=== PATIENT | male | born 1960 | race Caucasian/White ===

== ENCOUNTER 2017-01-10 11:45 | Inpatient (IN) | payer MEDICAID ==
[~2017-01-10] VITALS: Ht 177.8 cm; Wt 65.5 kg
[~2017-01-10 11:45] MED LIST: LORA1TAB PO; METO-302 PO
--- NOTE | 2017-01-10 11:50 | NUR ---
una from home for possible gi bleeding. Patient is awake, however appears confused. In no acute distress, respiration even and unlabored. No chest pain, no sob noted. Abdomen non tendered and non- distended. Patient noted with black stool. No nv. skin is warm to touch and non diaphoretic, Afebrile. Pending md breen
[2017-01-10] MEDS ORDERED: ONDANSETRON HCL/PF 4 MG/2 ML VIAL IVP ONE (12:00)
[2017-01-10] MEDS ORDERED: PANTOPRAZOLE 40 MG VIAL IV ONE (12:00)
[2017-01-10] MEDS ORDERED: PANTOPRAZOLE 80 MG in IV NS 0.9% 100 ML IV ONE (12:00)
[2017-01-10] MEDS ORDERED: IV NS 0.9% 1,000 ML BAG IV ONE (12:00)
[2017-01-10] MEDS ORDERED: PANTOPRAZOLE 40 MG VIAL ONE ×2 (12:02→12:14)
[2017-01-10] MEDS ORDERED: ONDANSETRON HCL/PF 4 MG/2 ML VIAL ONE (12:02)
[2017-01-10] MEDS ORDERED: IV NS 0.9% 1,000 ML ONE (12:03)
[2017-01-10] MEDS ORDERED: IV SET PRIMARY PUMP SET 1 EA INFUS.SET MC ONE ×4 (12:03→15:35)
--- NOTE | 2017-01-10 12:12 | NUR ---
iv accessed. Blood sample sent to lab
[2017-01-10 12:17] LABS: BASOPHILS # (AUTO) 0.2 /CMM (0.0-0.2); BASOPHILS % (AUTO) 1.2 % (0.0-2.0); EOSINOPHILS # (AUTO) 0.2 /CMM (0.0-0.7); EOSINOPHILS % (AUTO) 1.6 % (0.0-6.0); HEMATOCRIT 35 % (39-51); HEMOGLOBIN 11.6 g/dL (13.5-17.5); LYMPHOCYTES # (AUTO) 1.8 /CMM (0.8-4.8); LYMPHOCYTES % (AUTO) 12.2 % (20.0-44.0); MEAN CORPUSCULAR HEMOGLOBIN 31 PG (26.0-33.0); MEAN CORPUSCULAR HGB CONC 33 g/dl (31.0-36.0); MEAN CORPUSCULAR VOLUME 94 fL (80-96); MONOCYTES # (AUTO) 0.7 /CMM (0.1-1.30); MONOCYTES % (AUTO) 4.6 % (2.0-12.0); NEUTROPHILS # (AUTO) 11.8 /CMM (1.8-8.9); NEUTROPHILS % (AUTO) 80.4 % (43.0-81.0); PLATELET COUNT (AUTO) 100 /CMM (150-450); RDW COEFFICIENT OF VARIATION 16.8 (11.5-15.0); RED BLOOD CELL COUNT(AUTO) 3.75 MIL/uL (4.5-6.0); WHITE BLOOD COUNT (AUTO) 14.6 K/uL (4.3-11.0)
--- NOTE | 2017-01-10 12:20 | NUR ---
due medications given as ordered
[2017-01-10] MEDS ORDERED: FOLI1TAB16 PO (12:26)
[2017-01-10] MEDS ORDERED: THIA100T13 PO (12:26)
[2017-01-10] MEDS ORDERED: PANT40TA4 PO (12:26)
[2017-01-10 12:40] LABS: BILIRUBIN,DIRECT 0.7 mg/dL (0.0-0.2); BILIRUBIN,TOTAL 2.5 mg/dL (0.2-1.0); CALCIUM, SERUM 8.7 mg/dL (8.5-10.1); CREATININE 1.2 mg/dL (0.6-1.3); TOTAL PROTEIN, SERUM 6.9 g/dL (6.4-8.2)
[2017-01-10 12:42] LABS: POTASSIUM 2.3 mmol/L (3.5-5.1); TROPONIN I 0.018 ng/mL (0.00-0.056)
[2017-01-10 12:43] LABS: INR 1.15 (0.87-1.13); PROTHROMBIN TIME 12.1 SECS (9.5-12.7)
--- NOTE | 2017-01-10 12:58 | NUR ---
Pharmacy called for protonix drip
[2017-01-10] MEDS ORDERED: PANTOPRAZOLE 80 MG in IV NS 0.9% 500 ML IV ONE (13:00)
[2017-01-10 13:01] LABS: SERUM AMMONIA 37 umol/L (11-32)
[2017-01-10] MEDS ORDERED: Magnesium 1GM/D5W 100ML PREMIX 100 ML IV SCH (13:30)
[2017-01-10] MEDS ORDERED: POTASSIUM CL. PREMIX PERIPHER. 50 ML IV SCH (13:30)
[2017-01-10] MEDS ORDERED: Thiamine 100 MG in IV D5W 50 ML IV SCH (13:30)
[2017-01-10] MEDS ORDERED: Magnesium 1GM/D5W 100ML PREMIX 200 ML IV ONE (13:32)
[2017-01-10] MEDS ORDERED: POTASSIUM CL. PREMIX PERIPHER. 200 ML ONE (13:32)
[2017-01-10 13:42] LABS: ALCOHOL, BLOOD 0 mg/dL (0-0)
[2017-01-10] MEDS ORDERED: MORPHINE SULFATE INJ 2 MG/ML DISP.SYRIN IV PRN (14:00)
[2017-01-10] MEDS ORDERED: ONDANSETRON HCL/PF 4 MG/2 ML VIAL IVP PRN (14:00)
--- NOTE | 2017-01-10 14:07 | NUR ---
Report given to nurse Barnard for harper. Potassium 3 bags and magnesium 1 bag endorsed. Verbalized understanding. Pt cont on protonix drip. vss.
--- NOTE | 2017-01-10 14:12 | NUR ---
PT TRANSPORTED TO [facility] FOR BELEN
[2017-01-10 14:20] VITALS: BP 133/84
--- NOTE | 2017-01-10 14:20 | NUR ---
RN NOTES 56 YEARS OLD MALE RECEIVED FORM ER , A/Ox3-4, RESPIRATION EVEN AND UNLABORED , ON RA , ALIYA ANY DISTRESS , ST ON TELE, R AC AND L WRIST IV SITE CDI, PT. ORIENTED TO ROOM AND SURROUNDING , ADMISSION SKIN PHOTO TAKEN , PT ON CLEAR LIQUID DIET AT THIS TIME, NO GI BLEEDING NOTED, SR UP x3. BED IN LOW AND LOCKED POSITION, CONTINUE TO MONITOR PT CLOSELY AND NOTIFY MD FOR ANY SIGNIFICANT CHANGES
[2017-01-10] MEDS: OCTREOTIDE 1,250 MCG in IV NS 0.9% 247.5 ML IV PRN (15:16)
[2017-01-10 16:00] VITALS: BP 133/84
[2017-01-10] MEDS ORDERED: SECONDARY IV SET 1 EA INFUS.SET MC ONE (16:34)
[2017-01-10] MEDS: Folic acid 1 MG in IV D5W 50 ML IV SCH (16:39)
[2017-01-10] MEDS: IV D5/ 0.9% NACL 1,000 ML IV PRN (16:39)
--- NOTE | 2017-01-10 18:00 | NUR ---
RN NOTES VSS STABLE , NO GI BLEEDING NOTED , TOLERATING CLEAR LIQUID DIET WELL, D5NS AT 100 AND PROTONIX AT 8CC/HR RUNNING VIA L WRIST IV SITE NO PROBLEM NOTED ON THE SITE, SANDOSTATIN AT 10CC/HR RUNNING VIA R AC IV SITE ,WITHOUT ANY COMPLICATION , MEDICATED PER MD ORDER , NO SIGNIFICANT CHANGES NOTED ON THIS SHIFT.
[2017-01-10 20:00] VITALS: BP 97/61
[2017-01-10] MEDS: LORAZEPAM INJ 2 MG/ML VIAL IV PRN (22:06)
[2017-01-10] MEDS: PANTOPRAZOLE 80 MG in IV NS 0.9% 500 ML IV PRN (22:30)
--- NOTE | 2017-01-10 23:40 | NUR ---
FREDY/BUILDING MAINTENANCE SUPERINTENDENT Pt stated he takes Ativan to sleep, inform RN. IVP of this was given 0.5mg ivp. call light within reach. will monitor pt.
[2017-01-11] VITALS (8 sets, daily range): BP systolic 91–109; BP diastolic 58–67
[2017-01-11] MEDS: IV D5/ 0.9% NACL 1,000 ML IV PRN ×2 (04:46→21:49)
--- NOTE | 2017-01-11 07:15 | NUR ---
RN FREDY INITIAL NOTES RECEIVED REPORT AND PT FROM PM NURSE, PT IN BED SITTING UPRIGHT AWAKE AND ALERT X3, NO SOB OR ACUTE DISTRESS NOTED, ON RA SAT ABOVE 97%, ON TELE MON WITH HR SR 97, LT AC RT AC IV SITES INTACT NO S.S OF INFILTRATION NOTED, ALL NEEDS MET, ALL SAFETY MEASURES INITIATED, SIDE RAILS X2, BED LOW AND LOCKED, CALL LIGHT WITHIN REACH, WILL CONTINUE TO MONITOR.
[2017-01-11 07:30] LABS: BASOPHILS % (AUTO) 0.5 % (0.0-2.0); EOSINOPHILS # (AUTO) 0.5 /CMM (0.0-0.7); EOSINOPHILS % (AUTO) 6.7 % (0.0-6.0); HEMATOCRIT 26 % (39-51); HEMOGLOBIN 8.5 g/dL (13.5-17.5); LYMPHOCYTES # (AUTO) 1.2 /CMM (0.8-4.8); LYMPHOCYTES % (AUTO) 15.2 % (20.0-44.0); MEAN CORPUSCULAR HEMOGLOBIN 32 PG (26.0-33.0); MEAN CORPUSCULAR HGB CONC 33 g/dl (31.0-36.0); MEAN CORPUSCULAR VOLUME 95 fL (80-96); MONOCYTES # (AUTO) 0.4 /CMM (0.1-1.30); MONOCYTES % (AUTO) 5.8 % (2.0-12.0); NEUTROPHILS # (AUTO) 5.5 /CMM (1.8-8.9); NEUTROPHILS % (AUTO) 71.8 % (43.0-81.0); PLATELET COUNT (AUTO) 69 /CMM (150-450); RDW COEFFICIENT OF VARIATION 18.3 (11.5-15.0); WHITE BLOOD COUNT (AUTO) 7.6 K/uL (4.3-11.0)
[2017-01-11 07:48] LABS: ALBUMIN 2.1 g/dL (3.4-5.0); BILIRUBIN,TOTAL 1.4 mg/dL (0.2-1.0); CALCIUM, SERUM 7.5 mg/dL (8.5-10.1); CREATININE 0.8 mg/dL (0.6-1.3); MAGNESIUM 2.1 mg/dL (1.8-2.4); PHOSPHORUS 1.2 mg/dL (2.5-4.9); TOTAL PROTEIN, SERUM 5.2 g/dL (6.4-8.2)
[2017-01-11 07:54] LABS: THYROID STIMULATING HORMONE 0.661 uIU/mL (0.358-3.74)
[2017-01-11] MEDS: METOPROLOL SUCCINATE 25 MG TAB.SR.24H PO SCH (08:20)
[2017-01-11 08:23] LABS: POTASSIUM 2.6 mmol/L (3.5-5.1)
[2017-01-11 09:55] LABS: EOSINOPHILS % (MANUAL) 5 % (0-4); LYMPHOCYTES % (MANUAL) 17 % (16-48); MONOCYTES % (MANUAL) 4 % (0-11.0); NEUTROPHILS % (MANUAL) 73 (42-76)
[2017-01-11 09:56] LABS: ANISOCYTOSIS 1+; BAND % (MANUAL) 1 % (0.0-5.0); BASOPHILS % (MANUAL) 0 % (0.0-2.0); PLATELET ESTIMATE DECREASED
[2017-01-11] MEDS ORDERED: POTASSIUM CHLORIDE 10 MEQ/50 ML PREMIXED IVPB FOR PERIPHERAL LINE IV ONE (10:00)
[2017-01-11] MEDS: POTASSIUM CHLORIDE 20 MEQ POWDER PACKET GT SCH ×4 (10:32→13:43)
[2017-01-11] MEDS: POTASSIUM CL. PREMIX PERIPHER. 50 ML IV SCH ×4 (10:33→13:43)
[2017-01-11] MEDS: Thiamine 100 MG in IV D5W 50 ML IV SCH (14:42)
[2017-01-11] MEDS: Folic acid 1 MG in IV D5W 50 ML IV SCH (14:43)
[2017-01-11 14:50] LABS: CALCIUM, SERUM 7.7 mg/dL (8.5-10.1); CREATININE 0.8 mg/dL (0.6-1.3); POTASSIUM 4.3 mmol/L (3.5-5.1)
[2017-01-11 14:51] LABS: BASOPHILS % (AUTO) 0.5 % (0.0-2.0); EOSINOPHILS # (AUTO) 0.3 /CMM (0.0-0.7); EOSINOPHILS % (AUTO) 4.9 % (0.0-6.0); HEMATOCRIT 28 % (39-51); HEMOGLOBIN 9.2 g/dL (13.5-17.5); LYMPHOCYTES % (AUTO) 19.8 % (20.0-44.0); MEAN CORPUSCULAR HEMOGLOBIN 32 PG (26.0-33.0); MEAN CORPUSCULAR HGB CONC 33 g/dl (31.0-36.0); MEAN CORPUSCULAR VOLUME 95 fL (80-96); MONOCYTES # (AUTO) 0.3 /CMM (0.1-1.30); MONOCYTES % (AUTO) 6.6 % (2.0-12.0); NEUTROPHILS # (AUTO) 3.5 /CMM (1.8-8.9); NEUTROPHILS % (AUTO) 68.2 % (43.0-81.0); PLATELET COUNT (AUTO) 74 /CMM (150-450); RDW COEFFICIENT OF VARIATION 18.8 (11.5-15.0); RED BLOOD CELL COUNT(AUTO) 2.91 MIL/uL (4.5-6.0); WHITE BLOOD COUNT (AUTO) 5.2 K/uL (4.3-11.0)
[2017-01-11] MEDS ORDERED: IV SET PRIMARY PUMP SET 1 EA INFUS.SET MC ONE (15:02)
[2017-01-11] MEDS ORDERED: SECONDARY IV SET 1 EA INFUS.SET MC ONE (15:13)
[2017-01-11 15:16] LABS: EOSINOPHILS % (MANUAL) 5 % (0-4); LYMPHOCYTES % (MANUAL) 24 % (16-48); MONOCYTES % (MANUAL) 5 % (0-11.0); NEUTROPHILS % (MANUAL) 66 (42-76)
[2017-01-11 15:17] LABS: PLATELET ESTIMATE DECREASED
[2017-01-11] MEDS ORDERED: Sodium Phosphate 15 MMOL in IV D5W 250 ML IV ONE (16:00)
--- NOTE | 2017-01-11 19:30 | NUR ---
RN INITIAL NOTES RECEIVED PT AWAKE ON BED, ON ROOM AIR WITH NO S/S OF RESP DISTRESS. PT IS A/O X1 ONLY, VERY CONFUSED, WITH DISORGANIZED THOUGHTS. CURRENTLY SINUS RHYTHM ON THE MONITOR, HR 80'S. CONTINENT, ABLE TO USE URINAL NEEDED. PT HAS RIGHT AC 20G AND RIGHT FOOT 22G WITH PROTONIX DRIP @ 50MLS/HR, SANDOSTATIN DRIP @ 10MLS/HR, AND D5NS @ 100MLS/HR, LINES FLUSHED AND PATENT, NO S/S OF INFILTRATION/INFECTION, DRESSINGS CDI. BED LOW AND LOCKED, SIDERAILS UP, CALL LIGHT WITHIN REACH, BED ALARM ON. WILL MONITOR CLOSELY.
[2017-01-12] VITALS (7 sets, daily range): BP systolic 102–125; BP diastolic 58–75
--- NOTE | 2017-01-12 01:00 | NUR ---
RN NOTES NOTIFIED LEAH LOPEZ THAT PATIENT IS VERY CONFUSED, CONSTANTLY TRYING TO GET OUT OF THE BED, CONSTANTLY TRYING TO PULL HIS IV LINES. LEAH LOPEZ ORDERED 1:1 SITTER FOR THE PATIENT, WILL BE AVAILABLE IN THE MORNING. SHE ALSO ORDERED BILATERAL SOFT WRIST RESTRAINTS AND A 1 TIME 1MG ATIVAN IV ORDER TO BE GIVEN NOW.
[2017-01-12] MEDS ORDERED: LORAZEPAM INJ 2 MG/ML VIAL ONE (01:25)
[2017-01-12] MEDS: LORAZEPAM INJ 2 MG/ML VIAL IV PRN ×3 (01:29→20:57)
[2017-01-12] MEDS ORDERED: LORAZEPAM INJ 2 MG/ML VIAL IV PRN (01:30)
[2017-01-12] MEDS: PANTOPRAZOLE 80 MG in IV NS 0.9% 500 ML IV PRN ×2 (03:24→14:34)
--- NOTE | 2017-01-12 06:30 | NUR ---
RN CLOSING NOTES PT REMAINS STABLE OF THE MOMENT. STILL VERY CONFUSED, BILATERAL SOFT WRIST RESTRAINTS ON, PATIENT WILL HAVE 1:1 SITTER FOR AM SHIFT. ALL DUE MEDS GIVEN, AM CARE PROVIDED. WILL ENDORSE CONTINUITY OF CARE TO AM RN
[2017-01-12 06:56] LABS: BASOPHILS % (AUTO) 0.5 % (0.0-2.0); EOSINOPHILS # (AUTO) 0.3 /CMM (0.0-0.7); EOSINOPHILS % (AUTO) 5.8 % (0.0-6.0); HEMATOCRIT 25 % (39-51); HEMOGLOBIN 8.5 g/dL (13.5-17.5); LYMPHOCYTES # (AUTO) 1.2 /CMM (0.8-4.8); LYMPHOCYTES % (AUTO) 21.8 % (20.0-44.0); MEAN CORPUSCULAR HEMOGLOBIN 33 PG (26.0-33.0); MEAN CORPUSCULAR HGB CONC 34 g/dl (31.0-36.0); MEAN CORPUSCULAR VOLUME 97 fL (80-96); MONOCYTES # (AUTO) 0.5 /CMM (0.1-1.30); MONOCYTES % (AUTO) 9.3 % (2.0-12.0); NEUTROPHILS # (AUTO) 3.3 /CMM (1.8-8.9); NEUTROPHILS % (AUTO) 62.6 % (43.0-81.0); PLATELET COUNT (AUTO) 84 /CMM (150-450); RDW COEFFICIENT OF VARIATION 18.3 (11.5-15.0); RED BLOOD CELL COUNT(AUTO) 2.59 MIL/uL (4.5-6.0); WHITE BLOOD COUNT (AUTO) 5.3 K/uL (4.3-11.0)
[2017-01-12 07:09] LABS: ALBUMIN 2.3 g/dL (3.4-5.0); BILIRUBIN,TOTAL 1.4 mg/dL (0.2-1.0); CALCIUM, SERUM 7.9 mg/dL (8.5-10.1); CREATININE 0.7 mg/dL (0.6-1.3); MAGNESIUM 1.6 mg/dL (1.8-2.4); PHOSPHORUS 1.5 mg/dL (2.5-4.9); POTASSIUM 3.2 mmol/L (3.5-5.1); TOTAL PROTEIN, SERUM 5.7 g/dL (6.4-8.2)
--- NOTE | 2017-01-12 07:45 | NUR ---
RN NOTES RECEIVED PT RESTING IN BED, AWAKE ALERT ORIENTED TO NAME, NOTED WITH CONFUSION. SR ON TELE MONITOR. PT NOTED WITH EPISODE OF GETTING OOB, REALITY ORIENTATION PROVIDED, UNABLE TO FOLLOW SAFETY DIRECTIONS AT THIS TIME. SITTER AT BEDSIDE. ONGOING IVF D5NS@100ML/HR INFUSING ON R AC AND ONGOING PROTONIX DRIP RUNNING@50ML/HR INFUSING ON R AC. SANDOSTATION DRIP @ 10ML/HR INFUSING ON R FOOT. CDI. KEPT COMFORTABLE, CALL LIGHT WITHIN REACH.
[2017-01-12] MEDS ORDERED: POTASSIUM CHLORIDE 20 MEQ POWDER PACKET GT SCH (09:00)
[2017-01-12] MEDS: METOPROLOL SUCCINATE 25 MG TAB.SR.24H PO SCH (09:14)
[2017-01-12] MEDS: IV D5/ 0.9% NACL 1,000 ML IV PRN (09:15)
[2017-01-12 09:57] LABS: ANISOCYTOSIS 1+; BAND % (MANUAL) 3 % (0.0-5.0); EOSINOPHILS % (MANUAL) 3 % (0-4); LYMPHOCYTES % (MANUAL) 20 % (16-48); MONOCYTES % (MANUAL) 10 % (0-11.0); NEUTROPHILS % (MANUAL) 64 (42-76); PLATELET ESTIMATE DECREASED
--- NOTE | 2017-01-12 10:41 | NUR ---
RN NOTES DR ALEXIS AT BEDSIDE, PER MD, KEEP PT ON NPO UNTIL FURTHER ORDER. POSSIBLE EGD TODAY.
--- NOTE | 2017-01-12 10:52 | NUR ---
WOUND CARE CONSULT: PT NOT SEEN YET FOR SKIN ASSESSMENT DUE TO PT SLEEPING. PT WAS PREVIOUSLY VERY RESTLESS PER SITTER AT BEDSIDE AND JUST FELL ASLEEP. FINN SCORE NOTED TO BE 16 AND PT LYING ON HIS SIDE. WILL SEE PT PT CONDITION PERMITS.
--- NOTE | 2017-01-12 11:18 | NUR ---
WOUND CARE CONSULT: PT PRESENTS WITH STAGE II ULCER TO SACRUM, PRESENT ON ADMISSION PHOTO. RECOMMENDATIONS MADE FOR WOUND CARE AND SKIN PROTECTION. DISCUSSED WITH NURSING STAFF. PT VERY CONFUSED AND RESTLESS. SITTER AT BEDSIDE. PT ON RACH ISOFLEX LOW AIRLOSS BED. MULTIPLE DRY ABRASIONS NOTED, PRESENT ON ADMISSION. WILL SEE PRN. [place] IN AGREEMENT WITH PLAN OF CARE. Addendum: 01/12/17 at 1119 by FABIAN REED WNDNU Amended: Links added.
[2017-01-12] MEDS ORDERED: HYDROGEL DRESSING 90 GM TUBE TP PRN (11:30)
[2017-01-12] MEDS ORDERED: Z GUARD REMEDY 2 OZ OINT TP PRN (12:00)
[2017-01-12] MEDS: Z GUARD REMEDY 2 OZ OINT TP SCH (12:50)
[2017-01-12] MEDS: MAGNESIUM OXIDE 400 MG TABLET PO ONE ×2 (12:50→13:05)
[2017-01-12] MEDS: HYDROGEL DRESSING 90 GM TUBE TP SCH (12:50)
[2017-01-12] MEDS: Thiamine 100 MG in IV D5W 50 ML IV SCH (14:28)
[2017-01-12] MEDS ORDERED: SECONDARY IV SET 1 EA INFUS.SET MC ONE (14:31)
[2017-01-12] MEDS: Folic acid 1 MG in IV D5W 50 ML IV SCH (15:36)
[2017-01-12] MEDS: POTASSIUM CL. PREMIX PERIPHER. 50 ML IV SCH ×4 (15:40→19:03)
[2017-01-12] MEDS: OCTREOTIDE 1,250 MCG in IV NS 0.9% 247.5 ML IV PRN (15:40)
[2017-01-12] MEDS: Magnesium 1GM/D5W 100ML PREMIX 100 ML IV SCH ×2 (15:40→16:54)
[2017-01-12] MEDS ORDERED: Sodium Phosphate 15 MMOL in IV D5W 250 ML IV ONE (17:00)
[2017-01-12] MEDS ORDERED: IV SET PRIMARY PUMP SET 1 EA INFUS.SET MC ONE (18:10)
--- NOTE | 2017-01-12 19:30 | NUR ---
INSEAM TRIMMING MACHINE OPERATOR OPENING NOTES: PATIENT IN BED, AOX2, APPEARS CALM AND IN NO DISTRESS. ON ROOM AIR, BREATHING EVEN AND UNLABORED. BREATH SOUNDS CLEAR TO AUSCULTATION. PATIENT HAS PIV ACCESS OVER L FOOT G 22, INTACT AND INFUSING WELL WITH PROTONIX DRIP RUNNING AT 50 ML/HR. PIV ACCESS OVER RFOOT G 22 INTACT AND INFUSING WITH IVF OF D5NS RUNNING AT 100 ML/HR, AND SANDOSTATIN DRIP RUNNING AT 10 ML/HR. PATIENT KEPT ON NPO AT THIS TIME. WILL CONT TO MONITOR FOR SIGNS OF BLEEDING/ GI BLEEDING, PROVIDED FOR COMFORT AND SAFETY. SITTER AT BEDSIDE.
--- NOTE | 2017-01-12 20:50 | NUR ---
RN NOTES: EPIC AREA DEVELOPMENT CONSULTANT PAGED TO CHECK IF PATIETN IS TO BE KEPT NPO. PATIENT IS ASKING FOR FOOD.
--- NOTE | 2017-01-12 21:00 | NUR ---
RN NOTES: PATIENT APPEARS ANXIOUS AND IS ASKING FOR LORAZEPAM. ACCDG TO PATIENT HE FEELS HE HAS PAIN OVER FEET, HOWEVER, HE CLAIMS TO BE ALLERGIC TO MORPHINE AND VICODIN, AND SAYS HE TAKES ATIVAN FOR ANXIETY. LORAZEPAM 1 MG IV GIVEN. PIV ACCESSES OVER BRIAN FEET CHECKED, BOTH ARE PATENT, NO REDNESS OR SWELLING. ELEVATED WITH PILLOWS, WHICH PATIENT CLAIMED HELPED. NOW STATES PAIN IS "ZERO". WILL CONT TO MONITOR.
[2017-01-13] VITALS (14 sets, daily range): BP systolic 92–121; BP diastolic 56–88
[2017-01-13] MEDS ORDERED: IV SET PRIMARY PUMP SET 1 EA INFUS.SET MC ONE (01:59)
[2017-01-13] MEDS: PANTOPRAZOLE 80 MG in IV NS 0.9% 500 ML IV PRN ×2 (02:03→11:39)
--- NOTE | 2017-01-13 02:50 | NUR ---
RN NOTES: INFORMED MAHI LOPEZ NP, THAT PATIENT HAS BEEN ASKING FOR FOOD, AND THAT PATIENT WAS PLACED ON NPO SINCE THIS AM SHIFT DUE TO POSSIBLE EGD, HOWEVER, EGD HAS NOT YET BEEN DONE. PER BEST SECOND JOBS, PATIENT IS OK TO HAVE CLEAR LIQUIDS FOR NOW. NOTED AND CARRIED OUT.
--- NOTE | 2017-01-13 02:55 | NUR ---
RN NOTES/ ADDENDUM: PER PRIOR NURSES' NOTES, DR ALEXIS AT BEDSIDE YESTERDAY MORNING, AND ORDERED FOR PATIENT TO BE ON NPO UNTIL FURTHER ORDERS. PATIENT MAINTAINED ON NPO AT THIS TIME.
[2017-01-13] MEDS: LORAZEPAM INJ 2 MG/ML VIAL IV PRN (04:26)
[2017-01-13] MEDS: IV D5/ 0.9% NACL 1,000 ML IV PRN ×2 (04:28→15:28)
--- NOTE | 2017-01-13 06:59 | NUR ---
LONG DISTANCE BILLING OPERATOR CLOSING NOTES: PATIENT IN BED, ASLEEP AT THIS TIME. ON ROOM AIR, BREATHING EVEN AND UNLABORED, SATURATING AT 97%. PATIENT ON TELE MONITORING WITH SINUS RHYTHM AT RATE OF 90S. PIV ACCESS OVER R AND LEFT FOOT BOTH INTACT AND PATENT. R FOOT INFUSING WELL WITH IV FLUID OF D5NS RUNNING AT 100 ML/HR AND SANDOSTATIN DRIP AT 10 ML/HR. LEFT FOOT INFUSING WITH PROTONIX DRIP AT 8 MG/HR (50 ML /HR). MAINTAINED ON NPO. TURNED AND REPOSITIONED. DUE MEDS GIVEN. PROVIDED FOR COMFORT AND SAFETY. SITTER AT BEDSIDE. WILL ENDORSE TO AM RN FOR BELEN.
[2017-01-13 07:04] LABS: BASOPHILS % (AUTO) 0.2 % (0.0-2.0); EOSINOPHILS # (AUTO) 0.2 /CMM (0.0-0.7); EOSINOPHILS % (AUTO) 3.3 % (0.0-6.0); HEMATOCRIT 23 % (39-51); HEMOGLOBIN 7.8 g/dL (13.5-17.5); LYMPHOCYTES # (AUTO) 1.1 /CMM (0.8-4.8); LYMPHOCYTES % (AUTO) 22.9 % (20.0-44.0); MEAN CORPUSCULAR HEMOGLOBIN 33 PG (26.0-33.0); MEAN CORPUSCULAR HGB CONC 34 g/dl (31.0-36.0); MEAN CORPUSCULAR VOLUME 97 fL (80-96); MONOCYTES # (AUTO) 0.7 /CMM (0.1-1.30); NEUTROPHILS # (AUTO) 2.8 /CMM (1.8-8.9); NEUTROPHILS % (AUTO) 59.6 % (43.0-81.0); PLATELET COUNT (AUTO) 91 /CMM (150-450); RDW COEFFICIENT OF VARIATION 18.7 (11.5-15.0); RED BLOOD CELL COUNT(AUTO) 2.38 MIL/uL (4.5-6.0); WHITE BLOOD COUNT (AUTO) 4.8 K/uL (4.3-11.0)
[2017-01-13 07:26] LABS: CALCIUM, SERUM 7.4 mg/dL (8.5-10.1); CREATININE 0.6 mg/dL (0.6-1.3); MAGNESIUM 1.6 mg/dL (1.8-2.4); PHOSPHORUS 3.2 mg/dL (2.5-4.9); POTASSIUM 3.5 mmol/L (3.5-5.1)
[2017-01-13] MEDS ORDERED: MORPHINE SULFATE INJ 2 MG/ML DISP.SYRIN IV PRN (07:30)
--- NOTE | 2017-01-13 07:30 | NUR ---
RN NOTES RECEIVED PT RESTING IN BED, ASLEEP AT THIS TIME, SR ON TELE MONITOR. ONGOING IVF D5NS@100ML/HR INFUSING ON R FOOT AND ONGOING PROTONIX DRIP RUNNING@50ML/HR INFUSING ON R FOOT. SANDOSTATION DRIP @ 10ML/HR INFUSING ON L FOOT. CDI. KEPT COMFORTABLE, CALL LIGHT WITHIN REACH. SITTER AT BEDSIDE
--- NOTE | 2017-01-13 08:18 | NUR ---
WOUND CARE CONSULT WAS CALLED TO ASSESS THE PATIENT'S RIGHT ANTECUBITAL AREA. NURSING STAFF REPORTED THAT THE RIGHT ANTECUBITAL PERIPHERAL IV WAS INFILTRATED AND REMOVED THE CAUSE OF THE SWELLING YESTERDAY BUT HAS IMPROVED TODAY. RIGHT ARM ASSESSED BY WOUND CARE NURSE TO BE SLIGHTLY SWOLLEN. THERE IS A FLUID FILLED BLISTER NOTED. RECOMMENDATION TO KEEP SKIN CLEAN AND DRY, CONTINUE TO ELEVATE RIGHT ARM, DISCUSSED WITH NURSING STAFF. MD IN AGREEMENT WITH PLAN OF CARE. Addendum: 01/13/17 at 0821 by ARMANDO RIVERS WNDNU Amended: Links added.
[2017-01-13] MEDS: METOPROLOL SUCCINATE 25 MG TAB.SR.24H PO SCH (09:00)
[2017-01-13] MEDS: HYDROGEL DRESSING 90 GM TUBE TP SCH (10:10)
[2017-01-13] MEDS: Z GUARD REMEDY 2 OZ OINT TP SCH (10:11)
[2017-01-13] MEDS: Magnesium 1GM/D5W 100ML PREMIX 100 ML IV SCH ×2 (11:32→12:46)
--- NOTE | 2017-01-13 11:45 | NUR ---
RN NOTES SPOKE WITH DR ALEXIS OVER THE PHONE, PER MD PT FOR EGD, WILL FOLLOW UP WITH CONSENT. AND MAY DC SANDOSTATIN DRIP AND MAY KEEP PROTONIX DRIP. ORDERS READ BACK NOTED AND CARRIED OUT.
[2017-01-13] MEDS ORDERED: MIDAZOLAM HCL 2 MG/2ML VIAL ONE (13:14)
--- NOTE | 2017-01-13 13:15 | NUR ---
RN NOTES DR ROQUE, ANESTHESIOLOGIST AT [facility], INFORMED CONSENT OBTAINED FROM PT FOR EGD PROCEDURE TODAY. PT SIGNED CONSENT FORM. PT PICKED UP TO OR FOR THE PROCEDURE. NPO MAINTAINED.
--- NOTE | 2017-01-13 14:20 | NUR ---
RN NOTES PT CAME BACK FROM EGD, PER DR ALEXIS PT OK TO START ON SOFT DIET, PT CURRENTLY RECEIVEING IV BOLUS PER MD ORDER D/T EPISODE OF HYPOTENSION SBP AT 80'S. WILL CONT TO MONITOR.
[2017-01-13] MEDS: Thiamine 100 MG in IV D5W 50 ML IV SCH (14:37)
[2017-01-13] MEDS ORDERED: Thiamine 100 MG in IV D5W 50 ML IV SCH (15:00)
[2017-01-13] MEDS: Folic acid 1 MG in IV D5W 50 ML IV SCH (15:28)
--- NOTE | 2017-01-13 17:08 | NUR ---
RN NOTES SPOKE WITH DR REDMAN, REPORTED PT HEMOGLOBIN OF 7.8, PT S/P EGD SHOWED MULTIPLE ESOPHAGEAL ULCER, NO ACTIVE BLEEDING NOTED. PER MD TO GIVE 1 UNIT PRBC.
[2017-01-13] MEDS: HYDROMORPHONE 1 MG/1 ML DISP.SYRIN IV PRN (18:05)
[2017-01-13 18:22] LABS: HEMOGLOBIN 7.7 g/dL (13.5-17.5)
--- NOTE | 2017-01-13 19:30 | NUR ---
MS RN INITIAL NOTES RECEIVED PATIENT AWAKE A/OX3, LETHARGIC. ABLE TO MAKE NEEDS KNOWN. DENIES PAIN OR DISCOMFORT. EXPLAINED BLOOD TRANSFUSION, VERBALIZED UNDERSTANDING. NO RESPIRATORY DISTRESS NOTED. SKIN WARM AND DRY TO TOUCH. NOTED WITH RIGHT LOWER ARM REDNESS WITH MINIMAL SWELLING, WARM TO TOUCH. ELEVATED WITH PILLOW. WITH YOMI MIDLINE PATENT AND INTACT, IVF RUNNING. HOB KEPT ELEVATED. SIDE RAILS UP AND LOCKED. BED KEPT AT LOWEST POSITION. CALL LIGHT KEPT WITHIN EASY REACH. WILL CONTINUE TO MONITOR.
[2017-01-13] MEDS ORDERED: IV NS 0.9% 250 ML IV ONE (19:47)
[2017-01-13] MEDS ORDERED: BLOOD IV SET 1 EA INFUS.SET MC ONE (19:48)
--- NOTE | 2017-01-13 20:35 | NUR ---
NO BLOOD TRANSFUSION REACTION THE FIRST 15MINS OF TRANSFUSION.
[2017-01-13] MEDS: PANTOPRAZOLE 40 MG TABLET.DR PO SCH (21:06)
[2017-01-14 04:00] VITALS: BP 121/71
[2017-01-14 06:42] LABS: BASOPHILS % (AUTO) 0.5 % (0.0-2.0); EOSINOPHILS # (AUTO) 0.2 /CMM (0.0-0.7); EOSINOPHILS % (AUTO) 4.3 % (0.0-6.0); HEMATOCRIT 29 % (39-51); HEMOGLOBIN 9.9 g/dL (13.5-17.5); LYMPHOCYTES # (AUTO) 1.2 /CMM (0.8-4.8); LYMPHOCYTES % (AUTO) 25.2 % (20.0-44.0); MEAN CORPUSCULAR HEMOGLOBIN 32 PG (26.0-33.0); MEAN CORPUSCULAR HGB CONC 34 g/dl (31.0-36.0); MEAN CORPUSCULAR VOLUME 94 fL (80-96); MONOCYTES # (AUTO) 0.9 /CMM (0.1-1.30); MONOCYTES % (AUTO) 19.7 % (2.0-12.0); NEUTROPHILS # (AUTO) 2.3 /CMM (1.8-8.9); NEUTROPHILS % (AUTO) 50.3 % (43.0-81.0); PLATELET COUNT (AUTO) 116 /CMM (150-450); RDW COEFFICIENT OF VARIATION 18.8 (11.5-15.0); WHITE BLOOD COUNT (AUTO) 4.6 K/uL (4.3-11.0)
--- NOTE | 2017-01-14 07:07 | NUR ---
MS RN CLOSING NOTES NO SIGNIFICANT CHANGES OVERNIGHT. NO RESPIRATORY DISTRESS ON ROOM AIR. ABLE TO MAKE NEEDS KNOWN. NO PAIN OR DISCOMFORT. KEPT CLEAN AND DRY. ONE UNIT PRBC WAS GIVEN WITH NO ADVERSE REACTION. SIDE RAILS UP AND LOCKED. BED KEPT AT LOWEST POSITION. CALL LIGHT KEPT WITHIN EASY REACH. WILL ENDORSE CONTINUITY OF CARE TO AM NURSE.
[2017-01-14 07:14] LABS: CALCIUM, SERUM 7.2 mg/dL (8.5-10.1); CREATININE 0.6 mg/dL (0.6-1.3); MAGNESIUM 1.5 mg/dL (1.8-2.4); POTASSIUM 3.7 mmol/L (3.5-5.1)
[2017-01-14 08:00] VITALS: BP 120/78
[2017-01-14 08:55] LABS: EOSINOPHILS % (MANUAL) 5 % (0-4); LYMPHOCYTES % (MANUAL) 21 % (16-48); MONOCYTES % (MANUAL) 14 % (0-11.0); NEUTROPHILS % (MANUAL) 60 (42-76)
[2017-01-14 08:56] LABS: ANISOCYTOSIS 1+; PLATELET ESTIMATE DECREASED
[2017-01-14] MEDS: Z GUARD REMEDY 2 OZ OINT TP SCH (09:00)
[2017-01-14] MEDS: HYDROGEL DRESSING 90 GM TUBE TP SCH (09:00)
[2017-01-14] MEDS: METOPROLOL SUCCINATE 25 MG TAB.SR.24H PO SCH (09:17)
[2017-01-14] MEDS: PANTOPRAZOLE 40 MG TABLET.DR PO SCH ×2 (09:17→21:06)
[2017-01-14] MEDS: HYDROMORPHONE 1 MG/1 ML DISP.SYRIN IV PRN ×2 (09:25→18:48)
[2017-01-14] MEDS: IV D5/ 0.9% NACL 1,000 ML IV PRN ×2 (09:25→21:06)
[2017-01-14] MEDS ORDERED: MAGNESIUM OXIDE 400 MG TABLET PO ONE (11:30)
[2017-01-14] MEDS: THIAMINE HCL 100 MG TABLET PO SCH (11:49)
[2017-01-14] MEDS: FOLIC ACID 1 MG TABLET PO SCH (11:49)
--- NOTE | 2017-01-14 14:25 | NUR ---
RN MS NOTES RECEIVED REPORT AND PT FROM NURSE MAHONEY, WILL CONTINUE CARE.
[2017-01-14 16:00] VITALS: BP 109/69
--- NOTE | 2017-01-14 19:30 | NUR ---
MS RN INITIAL NOTE RECEIVED REPORT FROM DENISE SANTO. PT IN BED. ASLEEP BUT AROUSABLE. LUNG SOUNDS CLEAR. BOWEL SOUNDS PRESENT. PULSES PRESENT IN ALL EXTREMITIES. YOMI MIDLINE INTACT. BED IN LOW LOCKED POSITION. WILL CONTINUE TO MONITOR. CALL LIGHT WITHIN REACH.
[2017-01-14 20:00] VITALS: BP 131/67
[2017-01-15] MEDS: HYDROMORPHONE 1 MG/1 ML DISP.SYRIN IV PRN ×2 (01:46→21:32)
[2017-01-15 04:00] VITALS: BP 100/59
[2017-01-15 06:36] LABS: BASOPHILS % (AUTO) 0.8 % (0.0-2.0); EOSINOPHILS # (AUTO) 0.2 /CMM (0.0-0.7); EOSINOPHILS % (AUTO) 4.7 % (0.0-6.0); HEMATOCRIT 27 % (39-51); LYMPHOCYTES # (AUTO) 1.6 /CMM (0.8-4.8); LYMPHOCYTES % (AUTO) 40.6 % (20.0-44.0); MEAN CORPUSCULAR HEMOGLOBIN 31 PG (26.0-33.0); MEAN CORPUSCULAR HGB CONC 34 g/dl (31.0-36.0); MEAN CORPUSCULAR VOLUME 93 fL (80-96); MONOCYTES # (AUTO) 0.8 /CMM (0.1-1.30); MONOCYTES % (AUTO) 20.9 % (2.0-12.0); NEUTROPHILS # (AUTO) 1.3 /CMM (1.8-8.9); PLATELET COUNT (AUTO) 150 /CMM (150-450); RDW COEFFICIENT OF VARIATION 18.9 (11.5-15.0); RED BLOOD CELL COUNT(AUTO) 2.92 MIL/uL (4.5-6.0)
[2017-01-15] MEDS: IV D5/ 0.9% NACL 1,000 ML IV PRN ×2 (06:55→22:58)
[2017-01-15 07:02] LABS: CALCIUM, SERUM 7.3 mg/dL (8.5-10.1); CREATININE 0.6 mg/dL (0.6-1.3); POTASSIUM 3.8 mmol/L (3.5-5.1)
--- NOTE | 2017-01-15 07:30 | NUR ---
initial notes patient in bed, a+o x3, breathing wnl on room air. denies pain. states has mild anxiety r/t room mate disruption and requesting Ativan. decreased stimulus in room, provided comfort measures. pt. calm. no s/s of GI bleed. pt. stated having LE weakness since admission at the hospital- plan for PT eval today.YOMI midline patent with blood return. discussed plan of care. call ight inr each
[2017-01-15 07:55] LABS: ANISOCYTOSIS 1+; BAND % (MANUAL) 1 % (0.0-5.0); EOSINOPHILS % (MANUAL) 2 % (0-4); LYMPHOCYTES % (MANUAL) 50 % (16-48); MONOCYTES % (MANUAL) 13 % (0-11.0); NEUTROPHILS % (MANUAL) 34 (42-76); PLATELET ESTIMATE DECREASED
[2017-01-15 08:00] VITALS: BP 102/61
[2017-01-15] MEDS: PANTOPRAZOLE 40 MG TABLET.DR PO SCH ×2 (08:56→21:31)
[2017-01-15] MEDS: THIAMINE HCL 100 MG TABLET PO SCH (08:56)
[2017-01-15] MEDS: FOLIC ACID 1 MG TABLET PO SCH (08:56)
[2017-01-15] MEDS: HYDROGEL DRESSING 90 GM TUBE TP SCH (09:00)
[2017-01-15] MEDS: METOPROLOL SUCCINATE 25 MG TAB.SR.24H PO SCH (09:00)
[2017-01-15] MEDS: Z GUARD REMEDY 2 OZ OINT TP SCH (09:04)
[2017-01-15] MEDS: LORAZEPAM INJ 2 MG/ML VIAL IV PRN ×3 (09:05→21:32)
[2017-01-15 16:00] VITALS: BP 106/60
--- NOTE | 2017-01-15 19:33 | NUR ---
CLOSING NOTES LEFT PATIENT TO NIGHT NURSE INSTABLE CONDITION. NO ACUTE CHANGED. BREATHING AND LOC WNL
[2017-01-15 20:00] VITALS: BP 103/68
[2017-01-16] MEDS: HYDROMORPHONE 1 MG/1 ML DISP.SYRIN IV PRN ×3 (03:14→16:54)
[2017-01-16] MEDS: LORAZEPAM INJ 2 MG/ML VIAL IV PRN ×2 (03:36→22:01)
[2017-01-16 04:00] VITALS: BP 117/47
--- NOTE | 2017-01-16 04:40 | NUR ---
TECHNICAL ADMINISTRATOR - REC'D PT. A&O X 3, DELAYED SPEECH W/OCC. SLURRED WORDS. PT. REC'D DILAUDID 0.5MG-SLOW IVP AT 21:32 & 03:40, ALONG W/ATIVAN 1 MG IVP AT SAME TIMES LAST NIGHT. PT. ADM. A COMP. BEDBATH AT 03:30 AM. PT. HAS 1:1 SITTER IN ROOM. AFEBRILE. VSS. PT.CAN STAND/AMBULATE W/WALKER. PT.USES URINAL & BR. LUE MIDLINE HAS MIV OF D5NS INFUSING AT 100 CC/HR. RUE WOUNDS WERE REDRESSED. CONT. POC.
[2017-01-16 07:22] LABS: CALCIUM, SERUM 7.5 mg/dL (8.5-10.1); CREATININE 0.6 mg/dL (0.6-1.3); POTASSIUM 3.9 mmol/L (3.5-5.1)
--- NOTE | 2017-01-16 07:30 | NUR ---
MS RN NOTES RECEIVED PATIENT AWAKE IN BED, BREATHING EVEN AND UNLABORED, DENIES ANY PAIN AT THIS TIME. IVF'S ON PROGRESS ON HIS YOMI MIDLINE INTACT AND PATENT. CALL LIGHT WITHIN REACH, BED IN LOW POSITION FOR SAFETY MEASURES. WILL CONTINUE TO MONITOR.
[2017-01-16 08:00] VITALS: BP 106/65
[2017-01-16 08:21] LABS: BASOPHILS % (AUTO) 1.2 % (0.0-2.0); EOSINOPHILS # (AUTO) 0.2 /CMM (0.0-0.7); EOSINOPHILS % (AUTO) 4.1 % (0.0-6.0); HEMATOCRIT 28 % (39-51); HEMOGLOBIN 9.3 g/dL (13.5-17.5); LYMPHOCYTES # (AUTO) 1.5 /CMM (0.8-4.8); MEAN CORPUSCULAR HEMOGLOBIN 30 PG (26.0-33.0); MEAN CORPUSCULAR HGB CONC 33 g/dl (31.0-36.0); MEAN CORPUSCULAR VOLUME 92 fL (80-96); MONOCYTES # (AUTO) 0.8 /CMM (0.1-1.30); MONOCYTES % (AUTO) 22.7 % (2.0-12.0); NEUTROPHILS # (AUTO) 1.2 /CMM (1.8-8.9); PLATELET COUNT (AUTO) 191 /CMM (150-450); RDW COEFFICIENT OF VARIATION 18.7 (11.5-15.0); RED BLOOD CELL COUNT(AUTO) 3.06 MIL/uL (4.5-6.0); WHITE BLOOD COUNT (AUTO) 3.7 K/uL (4.3-11.0)
[2017-01-16] MEDS: PANTOPRAZOLE 40 MG TABLET.DR PO SCH ×2 (08:45→20:34)
[2017-01-16] MEDS: FOLIC ACID 1 MG TABLET PO SCH (08:45)
[2017-01-16] MEDS: THIAMINE HCL 100 MG TABLET PO SCH (08:45)
[2017-01-16] MEDS: METOPROLOL SUCCINATE 25 MG TAB.SR.24H PO SCH (08:46)
[2017-01-16] MEDS: HYDROGEL DRESSING 90 GM TUBE TP SCH (08:47)
[2017-01-16] MEDS: Z GUARD REMEDY 2 OZ OINT TP SCH (08:47)
[2017-01-16 08:58] LABS: EOSINOPHILS % (MANUAL) 2 % (0-4); LYMPHOCYTES % (MANUAL) 48 % (16-48); MONOCYTES % (MANUAL) 15 % (0-11.0); NEUTROPHILS % (MANUAL) 35 (42-76)
[2017-01-16 08:59] LABS: ANISOCYTOSIS 1+; HYPOCHROMASIA 1+; PLATELET ESTIMATE ADEQUATE
--- NOTE | 2017-01-16 11:00 | NUR ---
MS RN NOTES PT DONE AT BEDSIDE. PATIENT ABLE TO WALK WITH THE WALKER BUT NOTED THAT PATIENT IS WOBBLY. PATIENT IS AT RISK OF FALLING. PATIENT INSTRUCTED TO USE HIS CALL LIGHT IF HE NEED ASSISTANCE, PATIENT VERBALIZED UNDERSTANDING. WILL CONTINUE TO MONITOR.
[2017-01-16] MEDS: IV D5/ 0.9% NACL 1,000 ML IV PRN (14:52)
[2017-01-16 16:00] VITALS: BP 110/60
--- NOTE | 2017-01-16 18:00 | NUR ---
MS RN NOTES PATIENT IN BED, NO S/S OF ANY DISTRESS OR DISCOMFORT, ALL NEEDS ATTENDED AND ANTICIPATED. WILL CONTINUE TO MONITOR.
--- NOTE | 2017-01-16 19:19 | NUR ---
MS RN NOTES ENDORSED TO INCOMING SHIFT FOR CONTINUITY OF CARE.
--- NOTE | 2017-01-16 19:30 | NUR ---
MS RN INITIAL NOTES RECEIVED PATIENT AWAKE A/OX3, ABLE TO MAKE NEEDS KNOWN. DENIES PAIN OR DISCOMFORT. NO RESPIRATORY DISTRESS NOTED, ON ROOM AIR. WITH IVF RUNNING. SIDE RAILS UP AND LOCKED. BED KEPT AT LOWEST POSITION. CALL LIGHT KEPT WITHIN EASY REACH. WILL CONTINUE TO MONITOR.
[2017-01-16 19:57] VITALS: BP 104/63
[2017-01-16 20:00] VITALS: BP 104/63
[2017-01-17] VITALS (7 sets, daily range): BP systolic 80–110; BP diastolic 44–66
--- NOTE | 2017-01-17 00:24 | NUR ---
INFORMED DR. KENNEDY PATIENT WITH GOOD PO INTAKE, OK TO D/C IVF D5NS AT 60ML/HR. NOTED AND CARRIED OUT.
[2017-01-17] MEDS: HYDROMORPHONE 1 MG/1 ML DISP.SYRIN IV PRN ×3 (02:30→14:55)
--- NOTE | 2017-01-17 06:41 | NUR ---
MS RN CLOSING NOTES NO SIGNIFICANT CHANGES OVERNIGHT. ALL NEEDS ANTICIPATED AND MET. PAIN MANAGED NEEDED. NO EPISODE OF MELENA. NO RESPIRATORY DISTRESS NOTED. KEPT CLEAN AND DRY. SIDE RAILS UP AND LOCKED. BED KEPT AT LOWEST POSITION. CALL LIGHT KEPT WITHIN EASY REACH. WILL ENDORSE CONTINUITY OF CARE TO AM NURSE.
[2017-01-17 07:32] LABS: BASOPHILS % (AUTO) 1.3 % (0.0-2.0); EOSINOPHILS # (AUTO) 0.2 /CMM (0.0-0.7); EOSINOPHILS % (AUTO) 4.7 % (0.0-6.0); HEMATOCRIT 28 % (39-51); HEMOGLOBIN 9.2 g/dL (13.5-17.5); LYMPHOCYTES # (AUTO) 1.3 /CMM (0.8-4.8); LYMPHOCYTES % (AUTO) 37.1 % (20.0-44.0); MEAN CORPUSCULAR HEMOGLOBIN 31 PG (26.0-33.0); MEAN CORPUSCULAR HGB CONC 33 g/dl (31.0-36.0); MEAN CORPUSCULAR VOLUME 92 fL (80-96); MONOCYTES # (AUTO) 0.6 /CMM (0.1-1.30); MONOCYTES % (AUTO) 16.9 % (2.0-12.0); NEUTROPHILS # (AUTO) 1.4 /CMM (1.8-8.9); PLATELET COUNT (AUTO) 267 /CMM (150-450); RDW COEFFICIENT OF VARIATION 19.1 (11.5-15.0); RED BLOOD CELL COUNT(AUTO) 3.01 MIL/uL (4.5-6.0); WHITE BLOOD COUNT (AUTO) 3.5 K/uL (4.3-11.0)
[2017-01-17 07:33] LABS: CALCIUM, SERUM 8.2 mg/dL (8.5-10.1); CREATININE 0.6 mg/dL (0.6-1.3); MAGNESIUM 1.4 mg/dL (1.8-2.4); PHOSPHORUS 3.5 mg/dL (2.5-4.9); POTASSIUM 3.6 mmol/L (3.5-5.1)
--- NOTE | 2017-01-17 08:00 | NUR ---
MS1/RN AM SHIFT INITIAL NOTES RECEIVED PT AWAKE SITTING IN BED. NO ACTIVE BLEEDING OR ACUTE CHANGE OF CONDITION NOTED. PT A/O X 3, COMPLAINT OF GENERALIZED PAIN RATED 7/10, PRN DILAUDID TO BE GIVEN. ON ROOM AIR SATURATING @ 98%, LUNG SOUNDS CLEAR. SCHEDULED AM MEDS TO BE GIVEN. CL WITHIN REACHED AND SAFETY MAINTAINED. ON GOING MONITORING.
[2017-01-17] MEDS: FOLIC ACID 1 MG TABLET PO SCH (08:42)
[2017-01-17] MEDS: METOPROLOL SUCCINATE 25 MG TAB.SR.24H PO SCH (08:42)
[2017-01-17] MEDS: PANTOPRAZOLE 40 MG TABLET.DR PO SCH ×2 (08:42→21:12)
[2017-01-17] MEDS: THIAMINE HCL 100 MG TABLET PO SCH (08:42)
[2017-01-17] MEDS: HYDROGEL DRESSING 90 GM TUBE TP SCH (08:52)
[2017-01-17] MEDS: Z GUARD REMEDY 2 OZ OINT TP SCH (08:52)
[2017-01-17 09:02] LABS: BAND % (MANUAL) 1 % (0.0-5.0); EOSINOPHILS % (MANUAL) 4 % (0-4); LYMPHOCYTES % (MANUAL) 36 % (16-48); MONOCYTES % (MANUAL) 16 % (0-11.0); NEUTROPHILS % (MANUAL) 43 (42-76)
[2017-01-17 09:03] LABS: ANISOCYTOSIS 1+; PLATELET ESTIMATE ADEQUATE
[2017-01-17 09:04] LABS: HYPOCHROMASIA 1+
--- NOTE | 2017-01-17 09:41 | NUR ---
MS1/RN ROUNDS - DR. SANCHEZ PT BEING SEEN & EXAMINED BY DR. SANCHEZ. NO NEW ORDER RECEIVED AT THIS TIME.
--- NOTE | 2017-01-17 10:30 | NUR ---
MS1/RN AMBULATE PT AMBULATING ON FOUR WHEEL WALKER WITH STANDBY ASSIST, ABLE TO WALK THE UNIT HALLWAY BUT NOTED UNSTEADY GAIT.
[2017-01-17] MEDS ORDERED: SECONDARY IV SET 1 EA INFUS.SET MC ONE (10:39)
[2017-01-17] MEDS: ESCITALOPRAM OXALATE (10 MG) 10 MG TABLET PO SCH (10:45)
[2017-01-17] MEDS: Magnesium 1GM/D5W 100ML PREMIX 100 ML IV SCH ×4 (10:45→15:32)
[2017-01-17] MEDS: LORAZEPAM INJ 2 MG/ML VIAL IV PRN (10:45)
--- NOTE | 2017-01-17 15:44 | NUR ---
MS1/RN AFTERNOON ROUNDS NO ACUTE CHANGE OF CONDITION. SITTER AT BEDSIDE. MONITORING CONTINUED.
--- NOTE | 2017-01-17 16:00 | NUR ---
MS1/RN LOW BP T NOTED WITH BP 80/44, HR 70. PT DENIES ANY SYMPTOMS. ON GOING MONITORING.
--- NOTE | 2017-01-17 17:00 | NUR ---
MS1/RN BP - RECHECK BP RE-CHECKED 87/47, HR 67. PT STILL DENIES ANY SYMPTOMS. MONITORING CONTINUED.
--- NOTE | 2017-01-17 18:00 | NUR ---
MS1/RN MONITORING BP BP 88/55, HR 73. PT STILL DENIES ANY SYMPTOMS AT THIS TIME. MONITORING CONTINUED.
--- NOTE | 2017-01-17 19:21 | NUR ---
MS1/RN AM SHIFT END NOTES NO ACUTE CHANGE OF CONDITION NOTED DURING THE SHIFT. ALL NEEDS MET. ENDORSED TO PM NURSE TO CONTINUE CARE. CL WITHIN REACHED AND SAFETY MAINTAINED.
--- NOTE | 2017-01-17 19:30 | NUR ---
MS RN INITIAL NOTES RECEIVED PATIENT AWAKE A/OX3 ABLE TO MAKE NEEDS KNOWN. NO C/O PAIN OR DISCOMFORT AT THIS TIME. NO RESPIRATORY DISTRESS NOTED, ON ROOM AIR. SKIN WARM AND DRY TO TOUCH. WITH YOMI MIDLINE PATENT AND INTACT. SIDE RAILS UP AND LOCKED. BED KEPT AT LOWEST POSITION. CALL LIGHT KEPT WITHIN EASY REACH. WILL CONTINUE TO MONITOR.
--- NOTE | 2017-01-17 20:45 | NUR ---
MS RN NOTES PATIENT IN STABLE CONDITION. CONTINUITY OF CARE ENDORSED TO RILEY.
[2017-01-18 04:00] VITALS: BP 93/53
--- NOTE | 2017-01-18 07:30 | NUR ---
RN NOTES RECEIVED PATIENT IN BED ALERT, AWAKE, ORIENTED X3 WITH BREATHING NORMAL, EVEN AND UNLABORED. NO SOB NOTED. NO ACUTE DISTRESS NOTED. ON ROOM AIR, SATURATING WELL. YOMI MIDLINE IS PATENT AND INTACT. DENIES ANY PAIN OR DISCOMFORT. BOWEL SOUND PRESENT. PULSES PRESENT. SAFETY MEASURE OBSERVED. ALL NEEDS ATTENDED. CALL LIGHT WITH IN REACH. WILL CONT TO MONITOR.
[2017-01-18 07:32] LABS: CREATININE 0.6 mg/dL (0.6-1.3); MAGNESIUM 1.9 mg/dL (1.8-2.4); POTASSIUM 4.3 mmol/L (3.5-5.1)
[2017-01-18 08:00] VITALS: BP_SYST 126; BP_SYST 93; BP_DIAS 45; BP_DIAS 69
[2017-01-18] MEDS: THIAMINE HCL 100 MG TABLET PO SCH (08:27)
[2017-01-18] MEDS: FOLIC ACID 1 MG TABLET PO SCH (08:27)
[2017-01-18] MEDS: ESCITALOPRAM OXALATE (10 MG) 10 MG TABLET PO SCH (08:27)
[2017-01-18] MEDS: PANTOPRAZOLE 40 MG TABLET.DR PO SCH ×2 (08:27→20:31)
[2017-01-18] MEDS: METOPROLOL SUCCINATE 25 MG TAB.SR.24H PO SCH (08:28)
[2017-01-18] MEDS: HYDROGEL DRESSING 90 GM TUBE TP SCH (08:29)
[2017-01-18] MEDS: Z GUARD REMEDY 2 OZ OINT TP SCH (08:29)
[2017-01-18 16:00] VITALS: BP 109/66
--- NOTE | 2017-01-18 17:00 | NUR ---
RN NOTES CALLED PHARMACY REGARDING BOOST, DUE AT 1700. WILL CONT TO MONITOR.
--- NOTE | 2017-01-18 18:00 | NUR ---
RN NOTES CALLED PHARMACY AGAIN REGARDING BOOST, DUE AT 1700, STILL WAITING. WILL CONT TO MONITOR.
--- NOTE | 2017-01-18 19:12 | NUR ---
RN NOTES PATIENT ENDORSED TO NEXT SHIFT IN STABLE CONDITION WITH BREATHING NORMAL, EVEN AND UNLABORED. NO SOB NOTED. NO ACUTE DISTRESS NOTED. KEPT CLEAN, DRY AND COMFORTABLE. ALL NEEDS ATTENDED. SAFETY MEASURE OBSERVED. CALL LIGHT WITH IN REACH. WILL CONT TO MONITOR.
--- NOTE | 2017-01-18 19:15 | NUR ---
RN NOTES STILL WAITING FOR BOOST FROM PHARMACY. ENDORSED TO NEXT SHIFT TO F/U. WILL CONT TO MONITOR.
[2017-01-18 20:00] VITALS: BP 100/62
[2017-01-18] MEDS: BOOST PLUS FOOD-VANILLA 237 ML BOX PO SCH (20:31)
--- NOTE | 2017-01-18 22:45 | NUR ---
RECEIVED ENDORSEMENT FROM HANSA LIN, PT IS SLEEPING BUT EASILY AROUSED, NO PAIN OR RESPIRATORY DISTRESS NOTED, HOURLY ROUNDS WILL BE PERFORMED TO PROVIDE NEEDS, WILL PROVIDE CONTINUITY OF CARE.
[2017-01-19 04:00] VITALS: BP 110/66
--- NOTE | 2017-01-19 06:10 | NUR ---
MS RN CLOSING NOTE PT REMAINED STABLE DURING SPOOLING OPERATOR, NO SIGNIFICANT CHANGES IN PATIENT'S STATUS NOTED, VITAL SIGNS REMAINED WITHIN NORMAL LIMITS, PT ENCOURAGED TO REPOSITIONED EVERY TWO HOURS TO PREVENT SKIN BREAKDOWN, UNDERSTANDING VERBALIZED BY PT, KEPT CLEAN/DRY AND COMFORTABLE, ALL NEEDS ANTICIPATED AND ATTENDED TO, WILL ENDORSE TO INCOMING NURSE FOR BELEN.
[2017-01-19 08:00] VITALS: BP 110/62
[2017-01-19] MEDS: PANTOPRAZOLE 40 MG TABLET.DR PO SCH (08:34)
[2017-01-19] MEDS: FOLIC ACID 1 MG TABLET PO SCH (08:34)
[2017-01-19] MEDS: HYDROMORPHONE 1 MG/1 ML DISP.SYRIN IV PRN (08:34)
[2017-01-19] MEDS: BOOST PLUS FOOD-VANILLA 237 ML BOX PO SCH ×2 (08:34→12:34)
[2017-01-19] MEDS: ESCITALOPRAM OXALATE (10 MG) 10 MG TABLET PO SCH (08:34)
[2017-01-19 08:35] VITALS: BP 110/62
[2017-01-19] MEDS: Z GUARD REMEDY 2 OZ OINT TP SCH (08:35)
[2017-01-19] MEDS: THIAMINE HCL 100 MG TABLET PO SCH (08:35)
[2017-01-19] MEDS: HYDROGEL DRESSING 90 GM TUBE TP SCH (08:35)
[2017-01-19] MEDS: METOPROLOL SUCCINATE 25 MG TAB.SR.24H PO SCH (08:35)
--- NOTE | 2017-01-19 10:25 | NUR ---
RN NOTES PT REFUSED LAB DRAW, RISKS AND BENEFITS EXPLAINED, PT STILL REFUSED
--- NOTE | 2017-01-19 15:02 | NUR ---
RN NOTES PT DISCHARGED FROM UNIT IN STABLE CONDITION, VS WNL. PT TRANSPORTED TO HOME VIA [facility]. ALL PAPERWORK GIVEN AND SIGNED BY THE PT. DISCHARGE INSTRUCTIONS GIVEN, EXITCARE PROVIDED. YOMI MIDLINE SITE REMOVED, PRESSURE APPLIED COVERED WITH DRY DRESSING. PT ADVISED TO FF UP WITH PMD IN 1 WEEK. PT VERBALIZED UNDERSTANDING
== END 2017-01-19 14:43 | disposition home or self-care (01) | DRG 253 ==
LOC: ER 11:47 → TELE-TD 13:54 → TELE1 01-11 11:07 → MEDSG1 01-13 11:19
PROC: 05H633Z Insertion of Infusion Device into Left Subclavian Vein, Percutaneous Approach (ICD-10-PCS; 2017-01-13)
PROC: 0DB68ZX Excision of Stomach, Via Natural or Artificial Opening Endoscopic, Diagnostic (ICD-10-PCS; principal; 2017-01-13 13:10)
PROC: 30233N1 Transfusion of Nonautologous Red Blood Cells into Peripheral Vein, Percutaneous Approach (ICD-10-PCS; principal; 2017-01-13 13:10)
DX: K92.2 Gastrointestinal hemorrhage, unspecified (principal); N17.0 Acute kidney failure with tubular necrosis; G93.40 Encephalopathy, unspecified; E46 Unspecified protein-calorie malnutrition; E87.0 Hyperosmolality and hypernatremia; K22.10 Ulcer of esophagus without bleeding; R17 Unspecified jaundice; D62 Acute posthemorrhagic anemia; E87.6 Hypokalemia; I10 Essential (primary) hypertension; Z87.891 Personal history of nicotine dependence; E87.1 Hypo-osmolality and hyponatremia; D69.6 Thrombocytopenia, unspecified; F10.229 Alcohol dependence with intoxication, unspecified; F32.9 Major depressive disorder, single episode, unspecified
CPT/HCPCS: 36415; 71010-TC; 80048-TC; 80053-TC; 80061-TC; 80076-TC; 82040-TC; 82140-TC; 82746; 83540-TC; 83690-TC; 83735-TC; 84100-TC; 84425; 84443-TC; 84484-TC; 85025-TC; 85027-TC; 85730-TC; 86850-TC; 86921-TC; 87081-TC; 88305-TC; 88313-TC; 88342; 93971-TC; 97001-TC; 97116-TC; 97530-TC; A4606; A6248; A9563; C9113; G0480; J1170; J2060; J2250; J2354; J2405; J2704; J3411; J3475; J3480; J3490; J7030; J7040; J7042; J7050; J7060; P9016-BL; Z7610

== ENCOUNTER 2017-02-06 12:04 | Inpatient (IN) | payer MEDICAID, OTHER ==
[~2017-02-06] VITALS: Ht 180.3 cm; Wt 63.0 kg
[~2017-02-06 12:04] MED LIST changes: +FOLI1TAB16 PO; +PANT40TA4 PO; +THIA100T13 PO
--- NOTE | 2017-02-06 12:12 | NUR ---
pt una from home to er bed 10. states vomitted blood this am. states no appetite for 1 week because he is deppressed. no si/hi. denies alcohol use x 1 week. gowned and placed on monitor. tachy captain assistant. awaiting md breen.
--- NOTE | 2017-02-06 12:15 | NUR ---
dr castro at bedside for eval.
[2017-02-06] MEDS ORDERED: ONDANSETRON HCL/PF 4 MG/2 ML VIAL IVP ONE (12:30)
[2017-02-06] MEDS ORDERED: IV NS 0.9% 1,000 ML BAG IV ONE (12:30)
[2017-02-06] MEDS ORDERED: Thiamine 100 MG in IV D5W 50 ML IV SCH (12:30)
[2017-02-06] MEDS ORDERED: IV SET PRIMARY PUMP SET 1 EA INFUS.SET MC ONE ×3 (12:36→15:49)
[2017-02-06] MEDS ORDERED: ONDANSETRON HCL/PF 4 MG/2 ML VIAL ONE (12:36)
[2017-02-06] MEDS ORDERED: IV NS 0.9% 1,000 ML ONE (12:36)
[2017-02-06] MEDS ORDERED: IV SET PRIMARY 1 EA INFUS.SET MC ONE ×2 (12:36→12:45)
[2017-02-06 12:41] LABS: BASOPHILS # (AUTO) 0.5 /CMM (0.0-0.2); BASOPHILS % (AUTO) 3.2 % (0.0-2.0); EOSINOPHILS # (AUTO) 0.2 /CMM (0.0-0.7); EOSINOPHILS % (AUTO) 1.1 % (0.0-6.0); HEMATOCRIT 44 % (39-51); HEMOGLOBIN 14.5 g/dL (13.5-17.5); LYMPHOCYTES % (AUTO) 6.3 % (20.0-44.0); MEAN CORPUSCULAR HEMOGLOBIN 31 PG (26.0-33.0); MEAN CORPUSCULAR HGB CONC 33 g/dl (31.0-36.0); MEAN CORPUSCULAR VOLUME 93 fL (80-96); NEUTROPHILS # (AUTO) 13.8 /CMM (1.8-8.9); NEUTROPHILS % (AUTO) 83.4 % (43.0-81.0); PLATELET COUNT (AUTO) 119 /CMM (150-450); RDW COEFFICIENT OF VARIATION 19.5 (11.5-15.0); RED BLOOD CELL COUNT(AUTO) 4.74 MIL/uL (4.5-6.0); WHITE BLOOD COUNT (AUTO) 16.5 K/uL (4.3-11.0)
--- NOTE | 2017-02-06 12:49 | NUR ---
radiology at bedside for chest xray.
[2017-02-06 12:51] LABS: CALCIUM, SERUM 7.9 mg/dL (8.5-10.1); CREATININE 1.4 mg/dL (0.6-1.3); POTASSIUM 3.2 mmol/L (3.5-5.1)
[2017-02-06 12:53] LABS: INR 1.19 (0.87-1.13); PROTHROMBIN TIME 12.5 SECS (9.5-12.7)
[2017-02-06 13:02] LABS: ALBUMIN 3.2 g/dL (3.4-5.0); BILIRUBIN,DIRECT 0.4 mg/dL (0.0-0.2); BILIRUBIN,TOTAL 1.3 mg/dL (0.2-1.0); TOTAL PROTEIN, SERUM 7.2 g/dL (6.4-8.2)
[2017-02-06 13:04] LABS: TROPONIN I 0.032 ng/mL (0.00-0.056)
[2017-02-06] MEDS ORDERED: POTASSIUM CHLORIDE 20 MEQ TAB.PRT.SR PO ONE ×2 (13:30→13:55)
--- NOTE | 2017-02-06 13:30 | NUR ---
PAGED DR PAREDES
[2017-02-06 13:44] LABS: LYMPHOCYTES % (MANUAL) 3 % (16-48); MONOCYTES % (MANUAL) 6 % (0-11.0); NEUTROPHILS % (MANUAL) 91 (42-76)
[2017-02-06 13:45] LABS: ANISOCYTOSIS 1+; PLATELET ESTIMATE DECREASED
[2017-02-06] MEDS ORDERED: POTASSIUM CHLORIDE 20 MEQ POWDER PACKET ONE (14:00)
--- NOTE | 2017-02-06 14:22 | NUR ---
report given to leilaprosper,. awaiting transfer to floor.
[2017-02-06] MEDS ORDERED: MAG HYDROX/AL HYDROX/SIMETH 30 ML UDC PO PRN (15:30)
[2017-02-06] MEDS ORDERED: MAGNESIUM HYDROXIDE 30 ML UDC PO PRN (15:30)
[2017-02-06] MEDS ORDERED: ACETAMINOPHEN 325 MG TABLET PO PRN (15:30)
[2017-02-06] MEDS ORDERED: HYDROCODONE/APAP 5/325MG 1 EACH TABLET PO PRN (15:30)
[2017-02-06] MEDS: FOLIC ACID 1 MG TABLET PO SCH (15:45)
[2017-02-06] MEDS: LORAZEPAM 1 MG TABLET PO PRN (15:46)
[2017-02-06] MEDS: THIAMINE HCL 100 MG TABLET PO SCH (15:46)
[2017-02-06] MEDS: METOPROLOL SUCCINATE 25 MG TAB.SR.24H PO SCH (15:46)
[2017-02-06] MEDS: ONDANSETRON HCL/PF 4 MG/2 ML VIAL IVP PRN ×2 (15:47→17:55)
[2017-02-06 16:00] VITALS: BP 127/76
--- NOTE | 2017-02-06 16:00 | NUR ---
AUDIT CONTROL CLERK - Admission received patient via stretcher. aox4. no s/s of distress. denies sob on ra. denies pain. pt nauseas. iv hl at left foot patent and intact. skin check completed. all belongings confirmed with pt. pt oriented to room. dr campbell paged for orders.
[2017-02-06] MEDS: PANTOPRAZOLE 40 MG VIAL IV SCH (17:50)
--- NOTE | 2017-02-06 19:24 | NUR ---
program director cable television - closing note pt stable. tele monitor reading sinus tachy. all care rendered for pt. will endorse to security shift manager for harper.
--- NOTE | 2017-02-06 19:30 | NUR ---
FUEL OIL TRUCK DRIVER NOTE: PATIENT RESTING IN BED, NO ACUTE DISTRESS NOTED. BREATHING EVEN AND UNLABORED, NO SOB NOTED. TELE READING SR TO SINUS TACH 100-110. IV TO LEFT FOOT IN PLACE, INFUSING D5 1/2NS AT 75 ML/HR. PATIENT DENIES NAUSEA/VOMITING AT THIS TIME. BED LOCKED AND IN LOWEST POSITION, CALL LIGHT IN REACH. WILL CONTINUE TO MONITOR.
[2017-02-06 20:00] VITALS: BP 116/72
[2017-02-06] MEDS: IV D5/0.45 NACL 1,000 ML IV PRN (23:03)
[2017-02-06] MEDS: ZOLPIDEM TARTRATE 5 MG TABLET PO PRN (23:06)
--- NOTE | 2017-02-06 23:15 | NUR ---
AUTOMOTIVE TIRE WORKER NOTE: PATIENT REQUESTING MEDICATIONS TO HELP FOR SLEEP. AMBIEN 5MG ORAL GIVEN PER MD ORDER. WILL CONTINUE TO MONITOR.
[2017-02-07 00:53] VITALS: BP 115/73
--- NOTE | 2017-02-07 06:10 | NUR ---
DIVISION SUPERINTENDENT NOTE: PATIENT RESTING IN BED, NO ACUTE DISTRESS NOTED. BREATHING EVEN AND UNLABORED, NO SOB NOTED. TELE READING SR 88. IV TO LEFT FOOT IN PLACE, INFUSING D5 1/2NS AT 75 ML/HR. NO EPISODE OF NAUSEA/VOMITING THROUGHOUT SHIFT. BED LOCKED AND IN LOWEST POSITION, CALL LIGHT IN REACH. WILL ENDORSE TO DAY NURSE TO CONTINUE WITH PLAN OF CARE.
[2017-02-07 06:55] LABS: BASOPHILS # (AUTO) 0.1 /CMM (0.0-0.2); EOSINOPHILS % (AUTO) 0.4 % (0.0-6.0); HEMATOCRIT 30 % (39-51); HEMOGLOBIN 10.1 g/dL (13.5-17.5); LYMPHOCYTES # (AUTO) 1.2 /CMM (0.8-4.8); MEAN CORPUSCULAR HEMOGLOBIN 31 PG (26.0-33.0); MEAN CORPUSCULAR HGB CONC 34 g/dl (31.0-36.0); MEAN CORPUSCULAR VOLUME 91 fL (80-96); MONOCYTES # (AUTO) 0.7 /CMM (0.1-1.30); MONOCYTES % (AUTO) 8.6 % (2.0-12.0); NEUTROPHILS # (AUTO) 6.2 /CMM (1.8-8.9); PLATELET COUNT (AUTO) 72 /CMM (150-450); RDW COEFFICIENT OF VARIATION 20.6 (11.5-15.0); RED BLOOD CELL COUNT(AUTO) 3.28 MIL/uL (4.5-6.0); WHITE BLOOD COUNT (AUTO) 8.2 K/uL (4.3-11.0)
--- NOTE | 2017-02-07 07:10 | NUR ---
LOAD DISPATCHER LOCAL OPENING RECEIVED PATIENT A/OX4 DENIES PAIN,SOB, DIFFICULTY BREATHING. RESPIRATIONS EQUAL AND UNLABORED. PATIENT STATES NO NEEDS AT THIS TIME. IVF RUNNING ORDERED AND PATIENT STATES NO NEEDS. PATIENT DENIES NAUSEA OR VOMITING SINCE LAST NIGHT AND STATES HE FEELS MUCH BETTER. PATIENT WITH CALL LIGHT IN REACH, BED LOWERED AND LOCKED, RAILS UXP3 FOR SAFETY WITH BED ALARM ON DUE TO WEAKNESS. PATIENT AWARE PHYSICAL THERAPY WILL SEE HIM TODAY. Addendum: 02/07/17 at 1054 by TRISTON GARNER RN TELE NSR-SINUS TACHY 105
[2017-02-07 07:19] LABS: ALBUMIN 2.2 g/dL (3.4-5.0); BILIRUBIN,TOTAL 1.8 mg/dL (0.2-1.0); CALCIUM, SERUM 7.2 mg/dL (8.5-10.1); MAGNESIUM 1.4 mg/dL (1.8-2.4); TOTAL PROTEIN, SERUM 5.3 g/dL (6.4-8.2)
[2017-02-07 07:32] LABS: PHOSPHORUS 1.4 mg/dL (2.5-4.9)
[2017-02-07 08:00] VITALS: BP 108/63
[2017-02-07] MEDS: PANTOPRAZOLE 40 MG VIAL IV SCH ×2 (08:32→16:12)
[2017-02-07] MEDS: Z GUARD REMEDY 2 OZ OINT TP PRN ×2 (08:33→18:08)
[2017-02-07] MEDS: FOLIC ACID 1 MG TABLET PO SCH (08:33)
[2017-02-07] MEDS: THIAMINE HCL 100 MG TABLET PO SCH (08:33)
[2017-02-07] MEDS: METOPROLOL SUCCINATE 25 MG TAB.SR.24H PO SCH (08:38)
[2017-02-07 09:55] LABS: BASOPHILS % (MANUAL) 1 % (0.0-2.0); LYMPHOCYTES % (MANUAL) 15 % (16-48); MONOCYTES % (MANUAL) 9 % (0-11.0); NEUTROPHILS % (MANUAL) 75 (42-76)
[2017-02-07 09:56] LABS: ANISOCYTOSIS 3+; PLATELET ESTIMATE DECREASED
[2017-02-07] MEDS ORDERED: SECONDARY IV SET 1 EA INFUS.SET MC ONE (10:16)
[2017-02-07] MEDS: Magnesium 1GM/D5W 100ML PREMIX 100 ML IV SCH ×4 (10:20→13:40)
[2017-02-07] MEDS: POTASSIUM CHLORIDE 20 MEQ POWDER PACKET PO SCH ×3 (10:20→12:29)
[2017-02-07] MEDS ORDERED: IV SET PRIMARY PUMP SET 1 EA INFUS.SET MC ONE (11:02)
[2017-02-07] MEDS ORDERED: IV NS 0.9% 250 ML IV ONE ×2 (11:02→12:34)
--- NOTE | 2017-02-07 11:38 | NUR ---
MS RN NOTES PER DR PAREDES HAS DR ALEXIS SEE PATIENT, KEEP CLEAR LIQUID AT THIS TIME. ORDER 15MMOL POTASSIUM PHOS FOR PATIENT
--- NOTE | 2017-02-07 11:42 | NUR ---
MS RN NOTES TALKED TO DR ALEXIS TO NOTIFY OF CONSULTATION. PER MD KEEP CLEAR LIQUIDS AND ORDER CBC AT 1800 AND NOTIFY
[2017-02-07 12:00] VITALS: BP 114/61
[2017-02-07] MEDS ORDERED: NEUTRA PHOS 1 POWD.PACKET NG ONE (12:00)
--- NOTE | 2017-02-07 12:02 | NUR ---
MS RN NOTES PATIENT STATING MAGNESIUM IS HURTING HIM A LITTLE. HUNG A 250NS BAG AT 75/HR TO HELP DILUTE MAG. PATIENT STATES THIS FEELS BETTER. NOTIFIED HE HAS POTASSIUM PHOS AND HE IS REFUSING TO TAKE THIS AT THE SAME TIME THE MAGNESIUM. WE WILL START POTASS PHOS ONCE MAG COMPLETED
[2017-02-07] MEDS ORDERED: IV NS 0.9% 1,000 ML ONE (12:40)
[2017-02-07] MEDS ORDERED: POTASSIUM PHOSPHATE MM 15 MMOL in IV D5W 250 ML IV SCH (15:00)
[2017-02-07] MEDS: POTASSIUM PHOSPHATE MM 7.5 MMOL in IV D5W 100 ML IV SCH ×2 (15:05→18:07)
[2017-02-07 16:00] VITALS: BP 101/65
[2017-02-07 18:21] LABS: BASOPHILS % (AUTO) 0.6 % (0.0-2.0); EOSINOPHILS # (AUTO) 0.1 /CMM (0.0-0.7); EOSINOPHILS % (AUTO) 1.3 % (0.0-6.0); HEMATOCRIT 31 % (39-51); HEMOGLOBIN 10.4 g/dL (13.5-17.5); LYMPHOCYTES # (AUTO) 1.4 /CMM (0.8-4.8); LYMPHOCYTES % (AUTO) 21.1 % (20.0-44.0); MEAN CORPUSCULAR HEMOGLOBIN 31 PG (26.0-33.0); MEAN CORPUSCULAR HGB CONC 34 g/dl (31.0-36.0); MEAN CORPUSCULAR VOLUME 91 fL (80-96); MONOCYTES # (AUTO) 0.5 /CMM (0.1-1.30); MONOCYTES % (AUTO) 6.9 % (2.0-12.0); NEUTROPHILS # (AUTO) 4.7 /CMM (1.8-8.9); NEUTROPHILS % (AUTO) 70.1 % (43.0-81.0); PLATELET COUNT (AUTO) 59 /CMM (150-450); RDW COEFFICIENT OF VARIATION 18.9 (11.5-15.0); RED BLOOD CELL COUNT(AUTO) 3.39 MIL/uL (4.5-6.0); WHITE BLOOD COUNT (AUTO) 6.7 K/uL (4.3-11.0)
--- NOTE | 2017-02-07 18:33 | NUR ---
MS RN NOTES CALLED DR ALEXIS NOTIFIED OF UPDATED CBC AND PLATELE COUNT. PER MD NO NEW ORDERS AND KEEP PATIENT ON CLEAR LIQUIDS
--- NOTE | 2017-02-07 18:45 | NUR ---
MS RN CLOSING PATIENT STABLE NO COMPLICATIONS NO CHANGES THROUGHOUT DAY. DENIES N/V/D TOLERATING CLEAR LIQUID WELL. PATIENT IN POSITION OF COMFORT AND CALL LIGHT IN REACH, BED LOWERED AND LOCKED, RAILS UPX3, IVF RUNNING ORDERED, AND BED ALARM ON. WILL ENDORSE TO RN FOR BELEN
--- NOTE | 2017-02-07 19:20 | NUR ---
MS/RN OPENING NOTES PT AWAKE, A/OX4. ON ROOM AIR, DENIES SOB, NO S/S OF DISTRESS NOTED. BREATHING EVEN AND UNLABORED. NOTES PAIN TO LEFT FOOT FROM IVF RUNNING AND REQUESTING A BREAK FOR NOW. IVF STOPPED AND WILL RESUME IN ABOUT AN HOUR. DR. ALEXIS NOTIFIED FROM DAY SHIFT RN ABOUT 1800 CBC RESULTS. NO NEW ORDERS AT THIS TIME, WANTS TO KEEP HIM ON CLEAR LIQUIDS. BED IN LOW/LOCKED POSITION WITH CALL LIGHT IN REACH. ENCOURAGED PT TO CALL FOR ASSISTANCE IF WANTING TO GET OUT OF THE BED. BED RAILS UPX2. WILL CONTINUE TO MONITOR
[2017-02-07 20:00] VITALS: BP 100/68
--- NOTE | 2017-02-07 21:00 | NUR ---
MS/RN NOTES PT'S TEMPERATURE NOTED TO BE 99.1F PT REFUSING COOLING MEASURES AT THIS TIME. WANTS TO RECHECK TEMPERATURE LATER.
--- NOTE | 2017-02-07 22:25 | NUR ---
MS/RN NOTES ZOFRAN REASSESSMENT NOT DONE. PT DOES NOT COMPLAIN OF ANY N/V AT THIS TIME.
--- NOTE | 2017-02-07 23:00 | NUR ---
MS/RN NOTES PT REQUESTING AMBIEN FOR SLEEP. WILL ADMINISTER PRN AMBIEN 5MG PO
--- NOTE | 2017-02-07 23:00 | NUR ---
MS/RN NOTES RECHECKED TEMPERATURE 100.3F IMPLEMENTED COOLING MEASURES. ACETAMINOPHEN ALLERGY NOTED. PT STATES NO REACTION THAT HE IS AWARE OF. CALLED SPICE MIXER MD MARTINEZ TO CLARIFY IF IT IS OKAY TO ADMINISTER PRN TYLENOL.
[2017-02-07] MEDS: ZOLPIDEM TARTRATE 5 MG TABLET PO PRN (23:15)
--- NOTE | 2017-02-07 23:50 | NUR ---
MS/RN NOTES RECHECKED TEMPERATURE=98.7F WILL CONTINUE TO MONITOR
--- NOTE | 2017-02-08 02:00 | NUR ---
MS/RN NOTES PT ASLEEP, BREATHING EVEN AND UNLABORED. WILL CONTINUE TO MONITOR
[2017-02-08] MEDS: LORAZEPAM 1 MG TABLET PO PRN ×3 (03:35→18:52)
[2017-02-08] MEDS: IV D5/0.45 NACL 1,000 ML IV PRN ×2 (06:13→20:47)
--- NOTE | 2017-02-08 06:46 | NUR ---
MS/RN CLOSING NOTED PT ASLEEP, EASILY AROUSABLE TO NAME/TOUCH. A/OX4. ON ROOM AIR WITH NO S/S OF SOB OR DISTRESS. DENIES PAIN AT THIS TIME. BREATHING EVEN AND UNLABORED. IV TO LEFT FOOT PATENT AND INTACT RUNNING IVF ORDERED. PT REQUESTED ATIVAN 1MG PO AT APPROX 0330 TO CALM HIM DOWN AND HELP WITH SLEEP. NO N/V THROUGHOUT SHIFT. BED IN LOW/LOCKED POSITION WITH CALL LIGHT IN REACH. BED RAILS UPX2. MADE PT COMFORTABLE POSSIBLE THROUGHOUT SHIFT. ENCOURAGED PT TO TURNED AND REPOSITION Q2H AND EXTREMITIES REMAINED OFFLOADED. WILL ENDORSE TO AM SHIFT BELEN.
[2017-02-08 08:00] VITALS: BP_SYST 113; BP_DIAS 67; BP_DIAS 69
--- NOTE | 2017-02-08 08:00 | NUR ---
MS RN NOTE PT. AWAKE, ALERT AND ORIENTED X4. DENIED PAIN AND SOB. SIDE RAILS UP. CALL LIGHT WITHIN REACH. MONITOR CLOSELY.
[2017-02-08 08:38] LABS: CALCIUM, SERUM 7.3 mg/dL (8.5-10.1); CREATININE 0.7 mg/dL (0.6-1.3); MAGNESIUM 1.8 mg/dL (1.8-2.4); PHOSPHORUS 1.1 mg/dL (2.5-4.9); POTASSIUM 3.3 mmol/L (3.5-5.1)
[2017-02-08] MEDS: FOLIC ACID 1 MG TABLET PO SCH (08:38)
[2017-02-08] MEDS: THIAMINE HCL 100 MG TABLET PO SCH (08:38)
[2017-02-08] MEDS: PANTOPRAZOLE 40 MG VIAL IV SCH ×2 (08:38→17:03)
[2017-02-08] MEDS: METOPROLOL SUCCINATE 25 MG TAB.SR.24H PO SCH (08:39)
[2017-02-08 16:00] VITALS: BP 91/58
[2017-02-08] MEDS ORDERED: K PHOS NEUTRAL 250 MG TABLET PO ONE (17:00)
--- NOTE | 2017-02-08 19:00 | NUR ---
CLOSING SHIFT DENIED N/V AFTER SOFT DIET. VS STABLE. SIDE RAILS UP. CALL LIGHT WITHIN REACH. MONITOR CLOSELY.
--- NOTE | 2017-02-08 19:20 | NUR ---
MS/RN OPENING NOTES PT ASLEEP, EASILY AROUSABLE TO NAME. A/OX4, ON ROOM AIR, BREATHING EVEN AND UNLABORED. NO S/S OF DISTRESS OR PAIN NOTED. IV TO RIGHT FA PATENT AND INTACT RUNNING IVF ORDERED. NO COMPLAINTS OF N/V AT THIS TIME. BED IN LOW/LOCKED POSITION WITH CALL LIGHT IN REACH. BED RAILS UPX2. WILL CONTINUE TO MONITOR
[2017-02-08 20:00] VITALS: BP 103/69
--- NOTE | 2017-02-08 20:00 | NUR ---
MS/RN NOTES DR. ALEXIS AT BEDSIDE. NO NEW ORDERS AT THIS RELAYED AT THIS TIME.
[2017-02-08 21:09] LABS: ALBUMIN 2.1 g/dL (3.4-5.0); BILIRUBIN,DIRECT 0.2 mg/dL (0.0-0.2); BILIRUBIN,TOTAL 1.4 mg/dL (0.2-1.0); TOTAL PROTEIN, SERUM 4.9 g/dL (6.4-8.2)
[2017-02-08] MEDS: ZOLPIDEM TARTRATE 5 MG TABLET PO PRN (23:25)
--- NOTE | 2017-02-08 23:28 | NUR ---
MS/RN NOTES PT REQUESTING SLEEPING PILL. ADMINISTERED PRN AMBIEN 5MG PO. WILL CONTINUE TO MONITOR
--- NOTE | 2017-02-09 07:19 | NUR ---
MS/RN CLOSING NOTES PT AWAKE, A/OX4, ON ROOM AIR, NO SOB OR DISTRESS NOTED. BREATHING EVEN AND UNLABORED. DENIES PAIN. IV TO RIGHT FA PATENT AND INTACT RUNNING IVF ORDERED. STATES HE WANTS TO WORK WITH PT TO REGAIN HIS STRENGTH. MADE PT COMFORTABLE POSSIBLE THROUGHOUT NIGHT. PT HAD SANDWICH LAST NIGHT AND NOTED SLIGHT STOMACH DISCOMFORT BUT NO COMPLAINTS OF N/V. BED IN LOW/LOCKED POSITION WITH CALL LIGHT IN REACH. BED RAILS UPX2. ENDORSED TO AM SHIFT BELEN.
[2017-02-09 07:23] LABS: BASOPHILS % (AUTO) 0.6 % (0.0-2.0); EOSINOPHILS # (AUTO) 0.2 /CMM (0.0-0.7); EOSINOPHILS % (AUTO) 3.1 % (0.0-6.0); HEMATOCRIT 29 % (39-51); HEMOGLOBIN 9.8 g/dL (13.5-17.5); LYMPHOCYTES # (AUTO) 1.3 /CMM (0.8-4.8); LYMPHOCYTES % (AUTO) 22.9 % (20.0-44.0); MEAN CORPUSCULAR HEMOGLOBIN 31 PG (26.0-33.0); MEAN CORPUSCULAR HGB CONC 33 g/dl (31.0-36.0); MEAN CORPUSCULAR VOLUME 92 fL (80-96); MONOCYTES # (AUTO) 0.4 /CMM (0.1-1.30); MONOCYTES % (AUTO) 6.4 % (2.0-12.0); NEUTROPHILS # (AUTO) 3.8 /CMM (1.8-8.9); PLATELET COUNT (AUTO) 65 /CMM (150-450); RDW COEFFICIENT OF VARIATION 19.6 (11.5-15.0); RED BLOOD CELL COUNT(AUTO) 3.21 MIL/uL (4.5-6.0); WHITE BLOOD COUNT (AUTO) 5.6 K/uL (4.3-11.0)
[2017-02-09 07:56] LABS: CALCIUM, SERUM 7.6 mg/dL (8.5-10.1); CREATININE 0.7 mg/dL (0.6-1.3); POTASSIUM 3.3 mmol/L (3.5-5.1)
[2017-02-09 08:00] VITALS: BP 108/75
--- NOTE | 2017-02-09 08:00 | NUR ---
MS RN NOTE PT. AWAKE, ALERT AND ORIENTED X4. DENIED PAIN AND SOB. NO N/V. SIDE RAILS UP. CALL LIGHT WITHIN REACH. MONITOR CLOSELY.
[2017-02-09 08:12] VITALS: BP 108/75
[2017-02-09 08:19] LABS: BAND % (MANUAL) 4 % (0.0-5.0); EOSINOPHILS % (MANUAL) 4 % (0-4); LYMPHOCYTES % (MANUAL) 18 % (16-48); MONOCYTES % (MANUAL) 6 % (0-11.0); NEUTROPHILS % (MANUAL) 68 (42-76); PLATELET ESTIMATE DECREASED
[2017-02-09] MEDS: PANTOPRAZOLE 40 MG VIAL IV SCH ×2 (08:40→16:40)
[2017-02-09] MEDS: THIAMINE HCL 100 MG TABLET PO SCH (08:42)
[2017-02-09] MEDS: FOLIC ACID 1 MG TABLET PO SCH (08:42)
[2017-02-09] MEDS: METOPROLOL SUCCINATE 25 MG TAB.SR.24H PO SCH (08:43)
[2017-02-09] MEDS ORDERED: POTASSIUM CHLORIDE 20 MEQ TAB.PRT.SR PO SCH (10:30)
--- NOTE | 2017-02-09 10:52 | NUR ---
WOUND CARE CONSULT: PATIENT SEEN AND SKIN ASSESSMENT DONE. PATIENT ALERT, INCONTINENT, ABLE TO TURN AND REPOSITION HOWEVER NEEDS ASSIST AND PROMPTING, FINN 13, ON RACH ISOFLEX ELYSE BED. SEE TODAY'S SKIN ASSESSMENT IN PCS ALONG WITH RECOMMENDATIONS INCLUDING MOISTURE PROTECTIN AND PRESSURE PREVENTION MEASURES. ALL DISCUSSED WITH NURSING STAFF. MD IN AGREEMENT WITH PLAN OF CARE. Addendum: 02/09/17 at 1053 by ARMANDO RIVERS WNDNU Amended: Links added.
[2017-02-09] MEDS ORDERED: POTASSIUM PHOSPHATE MM 15 MMOL in IV D5W 250 ML IV SCH (11:30)
[2017-02-09] MEDS ORDERED: SECONDARY IV SET 1 EA INFUS.SET MC ONE ×2 (12:03→12:09)
[2017-02-09] MEDS: POTASSIUM PHOSPHATE MM 7.5 MMOL in IV D5W 100 ML IV SCH ×2 (12:07→16:02)
[2017-02-09] MEDS ORDERED: IV NS 0.9% 250 ML IV ONE (12:08)
[2017-02-09] MEDS: HYDROGEL DRESSING 90 GM TUBE TP SCH (13:11)
[2017-02-09] MEDS: NEOMY SULF/BACITRAC ZN/POLY 15 GM TUBE TP SCH ×2 (15:00→17:13)
[2017-02-09] MEDS: ONDANSETRON HCL/PF 4 MG/2 ML VIAL IVP PRN (15:57)
[2017-02-09 16:00] VITALS: BP 106/66
[2017-02-09 16:05] VITALS: BP 105/66
--- NOTE | 2017-02-09 18:45 | NUR ---
CLOSING SHIFT PT. AWAKE, ALERT AND ORIENTED X4. DENIED PAIN AND SOB. PT. WAS CRAVING FOOD AND OVEREATING. COMPLAINTS OF STOMACH ACHE AND VOMITING. SIDE RAILS UP. CALL LIGHT WITHIN REACH. MONITOR CLOSELY.
--- NOTE | 2017-02-09 19:30 | NUR ---
MS RN NOTES RECEIVED ON BED A/O X 4,ABLE TO VERBALIZED NEEDS.IVF INFUSING WELL ON RIGHT FA VIA IV PUMP,SITE PATENT.INFORMED THAT HE'S BEING DISCHARGE BY DOCTOR,BUT HE REFUSED,HE WANTS TO BE SEEN BY SAFETY COUNSELOR FIRST BECAUSE HE LEAVES ALONE.CHARGE NURSE MADE AWARE.WILL CONTINUE TO MONITOR STATUS.
[2017-02-09 20:00] VITALS: BP 97/59
[2017-02-09] MEDS: ZOLPIDEM TARTRATE 5 MG TABLET PO PRN (21:26)
[2017-02-09] MEDS ORDERED: IV D5/0.45 NACL 1,000 ML IV ONE (21:26)
--- NOTE | 2017-02-09 21:26 | NUR ---
MS RN NOTES C/O INSOMNIA,AMBIEN 5MG PO GIVEN BY JAMEY SANTO
[2017-02-09] MEDS: IV D5/0.45 NACL 1,000 ML IV PRN (21:30)
--- NOTE | 2017-02-10 03:00 | NUR ---
MS RN NOTES SLEEPING,KEPT WARM AND COMFORTABLE
--- NOTE | 2017-02-10 06:54 | NUR ---
MS NURSE'S CLOSING NOTES PT IS STABLE CONDITION. NO SOB OR SIGNS OF DISTRESS. NO COMPLAINS OF PAIN AT THIS TIME. BED IS LOW LOCKED POSITION. SIDE RAILS UP X2, CALL LIGHT WITHIN REACH.
[2017-02-10 07:48] LABS: CALCIUM, SERUM 7.5 mg/dL (8.5-10.1); CREATININE 0.7 mg/dL (0.6-1.3); POTASSIUM 3.4 mmol/L (3.5-5.1)
[2017-02-10 08:00] VITALS: BP 103/64
[2017-02-10 08:19] VITALS: BP 103/65
[2017-02-10] MEDS: PANTOPRAZOLE 40 MG VIAL IV SCH (08:19)
[2017-02-10] MEDS: THIAMINE HCL 100 MG TABLET PO SCH (08:19)
[2017-02-10] MEDS: FOLIC ACID 1 MG TABLET PO SCH (08:19)
[2017-02-10] MEDS: METOPROLOL SUCCINATE 25 MG TAB.SR.24H PO SCH (08:19)
[2017-02-10] MEDS: HYDROGEL DRESSING 90 GM TUBE TP SCH (08:20)
[2017-02-10] MEDS: LORAZEPAM 1 MG TABLET PO PRN (08:56)
[2017-02-10] MEDS: IV D5/0.45 NACL 1,000 ML IV PRN (08:56)
[2017-02-10] MEDS: Z GUARD REMEDY 2 OZ OINT TP PRN (08:57)
[2017-02-10] MEDS: NEOMY SULF/BACITRAC ZN/POLY 15 GM TUBE TP SCH (08:57)
--- NOTE | 2017-02-10 10:00 | NUR ---
MS RN NOTES PATIENT HAS NOT SEEN HOSPICE CLINICAL SUPERVISOR YET. WILL NOTIFY FILLING WINDER SARKIS
[2017-02-10] MEDS ORDERED: POTASSIUM CHLORIDE 20 MEQ POWDER PACKET NG SCH (12:00)
--- NOTE | 2017-02-10 12:32 | NUR ---
Social service consult requested by TYLER Gutierrez for alcohol abuse. Per H&P report by Dr. Trinh, pt. is a 56-year-old male who presented to the emergency room for evaluation of persistent nausea and vomiting. Patient reports for some blood in the vomiting as well. Patient has chronic history of alcohol abuse and his last alcohol use was as per patient last Thursday. Patient has been drinking 5-6 shots of vodka every day. Patient denies any fever or chills. Patient seems to be confused. Pt. was admitted inpatient for persistent nausea vomiting with toxic encephalopathy. SW met with pt. bedside. Pt. is A&O x 3. Pt. appeared well-groomed. When asked how he is doing, pt. stated ," Not too bad and not too good." Pt. resides in a guest house located at [address] [place] [address]. [facility]. Pt. states he is an alcoholic and had his last drink a few days ago. Pt. has not been to an alcohol treatment center and is interested to attending one. Pt. has been to in the [facility]. Pt' s drink of choice is vodka. Pt. has at least 5 to 6 shots of vodka daily. Pt. denies SI/HI and VH/AH at this time. SW gave pt. referral lists for Residential Drug and alcohol treatment Programs and Substance Abuse programs. Pt. is requesting no other social service needs at this time and SW will re-assess if necessary. Charge nurse Matt benítez.
--- NOTE | 2017-02-10 13:39 | NUR ---
MS RN NOTES PATIENT MET WITH TONGER AND AWARE HE WILL HAVE HOME HEALTH UPON DC. PATIENT REQUESTING TAXI VOUCHER FOR DC
--- NOTE | 2017-02-10 14:14 | NUR ---
MS AREA DEVELOPMENT CONSULTANT PATIENT STABLE NO COMPLICATIONS NO CHANGES NOTED. PATIENT EDUCATED AND UNDERSTOOD DISCHARGE MATERIAL. ALL BELONGINGS ACCOUNTED FOR AND SIGNED BY PATIENT. PATIENT STATES NO FURTHER QUESTIONS NEEDED. PATIENT ASSISTED TO TAXI WITH NO COMPLICATIONS. PATIENT IV REMOVED PRESSURE AND DRESSING APPLIED NO BLEEDING. ID BANDS REMOVED.
== END 2017-02-10 14:10 | disposition home health service (06) | DRG 241 ==
LOC: ER 12:06 → TELE 14:22 → MED 02-07 11:22
PROVIDERS: ADMIT Internal Medicine; ATTEND Internal Medicine
DX: K29.21 Alcoholic gastritis with bleeding (principal); N17.0 Acute kidney failure with tubular necrosis; G92 Toxic encephalopathy; D62 Acute posthemorrhagic anemia; E86.0 Dehydration; I10 Essential (primary) hypertension; E87.6 Hypokalemia; F10.229 Alcohol dependence with intoxication, unspecified; Z87.891 Personal history of nicotine dependence; F10.239 Alcohol dependence with withdrawal, unspecified
CPT/HCPCS: 36415; 71010-TC; 80048-TC; 80053-TC; 80061-TC; 80076-TC; 82140-TC; 83690-TC; 83735-TC; 84100-TC; 84484-TC; 85025-TC; 85730-TC; 86850-TC; 87081-TC; 97001-TC; 97110-TC; 97116-TC; 97530-TC; 97535-TC; A4606; A6248; C9113; J2405; J3411; J3475; J3490; J7030; J7050; J7060; Z7610

== ENCOUNTER 2017-02-16 15:59 | Inpatient (IN) | payer OTHER ==
[~2017-02-16] VITALS: Ht 180.3 cm; Wt 54.1 kg
--- NOTE | 2017-02-16 16:08 | NUR ---
BBRA 84 FROM HOME FOR "NOT FEELING WELL" HX OF ETOH AND DENIED DRINKING TODAY. PLACED ON MONITOR. LOW BS UPDATED MD AND AWAITING MD ORDER.
[2017-02-16] MEDS ORDERED: DEXTROSE 50%-WATER 50 ML DISP.SYRIN ONE (16:09)
[2017-02-16 16:29] LABS: BASOPHILS # (AUTO) 0.1 /CMM (0.0-0.2); BASOPHILS % (AUTO) 1.5 % (0.0-2.0); EOSINOPHILS % (AUTO) 0.1 % (0.0-6.0); HEMATOCRIT 33 % (39-51); LYMPHOCYTES # (AUTO) 0.8 /CMM (0.8-4.8); LYMPHOCYTES % (AUTO) 19.6 % (20.0-44.0); MEAN CORPUSCULAR HEMOGLOBIN 31 PG (26.0-33.0); MEAN CORPUSCULAR HGB CONC 33 g/dl (31.0-36.0); MEAN CORPUSCULAR VOLUME 93 fL (80-96); MONOCYTES # (AUTO) 0.2 /CMM (0.1-1.30); MONOCYTES % (AUTO) 4.7 % (2.0-12.0); NEUTROPHILS # (AUTO) 3.1 /CMM (1.8-8.9); NEUTROPHILS % (AUTO) 74.1 % (43.0-81.0); PLATELET COUNT (AUTO) 349 /CMM (150-450); RDW COEFFICIENT OF VARIATION 19.6 (11.5-15.0); RED BLOOD CELL COUNT(AUTO) 3.59 MIL/uL (4.5-6.0); WHITE BLOOD COUNT (AUTO) 4.2 K/uL (4.3-11.0)
[2017-02-16] MEDS ORDERED: IV NS 0.9% 1,000 ML BAG IV ONE (16:30)
[2017-02-16] MEDS ORDERED: ONDANSETRON HCL/PF - ER 4 MG/2 ML VIAL IV ONE (16:30)
[2017-02-16] MEDS ORDERED: DEXTROSE 50%-WATER 50 ML DISP.SYRIN IV ONE (16:30)
[2017-02-16] MEDS ORDERED: IV SET PRIMARY PUMP SET 1 EA INFUS.SET MC ONE ×5 (16:32→20:00)
[2017-02-16] MEDS ORDERED: IV NS 0.9% 1,000 ML ONE (16:32)
[2017-02-16] MEDS ORDERED: ONDANSETRON HCL/PF 4 MG/2 ML VIAL ONE (16:32)
[2017-02-16 16:52] LABS: CALCIUM, SERUM 7.8 mg/dL (8.5-10.1); CREATININE 0.7 mg/dL (0.6-1.3); POTASSIUM 3.4 mmol/L (3.5-5.1)
[2017-02-16 16:54] LABS: MAGNESIUM 1.7 mg/dL (1.8-2.4)
[2017-02-16 16:57] LABS: ALBUMIN 2.8 g/dL (3.4-5.0); BILIRUBIN,DIRECT 0.5 mg/dL (0.0-0.2); TOTAL PROTEIN, SERUM 6.7 g/dL (6.4-8.2)
--- NOTE | 2017-02-16 17:14 | NUR ---
PT REFUSED NGT AWARE
--- NOTE | 2017-02-16 17:16 | NUR ---
[facility] FOR [facility]. GILLESPIE RE: PT ADMISSION. DX: HYPOGLYCEMIA AND GI BLEED.
[2017-02-16 17:22] LABS: INR 0.93 (0.87-1.13); PROTHROMBIN TIME 9.9 SECS (9.5-12.7)
[2017-02-16] MEDS: POTASSIUM CL. PREMIX PERIPHER. 50 ML IV SCH ×4 (17:30→21:15)
[2017-02-16] MEDS ORDERED: PANTOPRAZOLE 40 MG VIAL IV ONE (17:30)
[2017-02-16] MEDS: Magnesium 1GM/D5W 100ML PREMIX 100 ML IV SCH ×2 (17:30→18:17)
[2017-02-16] MEDS ORDERED: Magnesium 1GM/D5W 100ML PREMIX 100 ML IV ONE ×2 (17:33→18:07)
[2017-02-16] MEDS ORDERED: PANTOPRAZOLE 40 MG VIAL ONE (17:33)
[2017-02-16 17:46] LABS: CANNABINOID, URINE NEGATIVE (NEGATIVE); PHENCYCLIDINE SCREEN,URINE NEGATIVE (NEGATIVE)
[2017-02-16] MEDS ORDERED: POTASSIUM CL. PREMIX PERIPHER. 200 ML ONE (18:07)
--- NOTE | 2017-02-16 18:25 | NUR ---
REPORT GIVEN TO FREDY NURSE.
[2017-02-16] MEDS ORDERED: ONDANSETRON HCL/PF 4 MG/2 ML VIAL IVP PRN (18:30)
[2017-02-16] MEDS ORDERED: MAGNESIUM HYDROXIDE 30 ML UDC PO PRN (18:30)
[2017-02-16] MEDS ORDERED: ZOLPIDEM TARTRATE 5 MG TABLET PO PRN (18:30)
[2017-02-16] MEDS ORDERED: LORAZEPAM INJ 2 MG/ML VIAL IV PRN (18:30)
[2017-02-16] MEDS ORDERED: Z GUARD REMEDY 2 OZ OINT TP PRN (18:30)
--- NOTE | 2017-02-16 19:20 | NUR ---
GAVE REPORT PARLIAMENTARY LIBRARIAN RHEA [phone] . GIVE REPORT TO FARM EQUIPMENT OPERATOR MACY SANTO FOR BELEN
--- NOTE | 2017-02-16 19:20 | NUR ---
RECEIVED PATIENT FROM ER. PT A/O X3. PT KEPT CLEAN, DRY, AND COMFORTABLE. EXPLAINED TO PT THAT HE IS ON NPO. PT HAS IV ON R AC #20 G AND IS PATENT AND INTACT. CALL LIGHT WITHIN PT'S REACH. BED KEPT IN LOCKED, LOWEST POSITION, AND SIDE RAILS X2. VITAL SIGNS UPON ADMISSION 123/63 HR 99. PATIENT ON ROOM AIR AND 100% SAT. TEMP AT 97.9 WILL CONTINUE TO MONITOR PT.
--- NOTE | 2017-02-16 19:22 | NUR ---
RECEIVED REPORT FROM HANSA CALLAHAN FOR [facility]. PT APPEARS TO BE COMFORTABLE IN BED.
--- NOTE | 2017-02-16 19:30 | NUR ---
ENDORSE TO DAE NURSE THAT SHE NEEDS TO ADMINISTER 2 MORE BAGS OF POTASSIUM.ONLY TWO WAS GIVEN IN ER
--- NOTE | 2017-02-16 19:30 | NUR ---
MUSIC MINISTRIES DIRECTOR OPENING NOTES: RECEIVED PATIENT IN [facility] FROM ER. OTHER 2 BAGS OF POTASSIUM WAS GIVEN HERE. PT AWAKE, A/OX3. PT ON ROOM AIR. NO SIGNS OF DISTRESS. BREATHING EVEN AND UNLABORED. PT NPO EXCEPT MEDS. BED IN LOWEST, LOCKED POSITION, AND SIDE RAILS X2 UP. CALL LIGHT WITHIN PT REACH. KEPT CLEAN, DRY, AND COMFORTABLE. WILL CONTINUE TO MONITOR PT.
[2017-02-16 20:00] VITALS: BP 123/63
[2017-02-16] MEDS ORDERED: IV NS 0.9% 250 ML IV ONE (20:01)
[2017-02-16 20:36] VITALS: BP 123/63
[2017-02-16 22:00] VITALS: BP 103/65
[2017-02-16] MEDS: Folic acid 1 MG in IV D5W 50 ML IV SCH (22:10)
[2017-02-16] MEDS: Thiamine 100 MG in IV D5W 50 ML IV SCH (22:53)
--- NOTE | 2017-02-16 23:11 | NUR ---
PATIENT REQUESTED FOR JOSE LUIS. WILL CONTINUE TO MONITOR PT.
[2017-02-17] VITALS (7 sets, daily range): BP systolic 99–131; BP diastolic 60–78
--- NOTE | 2017-02-17 07:04 | NUR ---
MOLDER OPERATOR CLOSING NOTES: PATIENT A/O X4. PT IN BED AWAKE AND WATCHING TELEVISION. PT KEPT CLEAN, DRY, AND COMFORTABLE. PT'S IV ON R AC#20 AND IS PATENT AND INTACT. PT IN LOWEST, LOCKED POSITION, AND SIDE RAILS X2 UP. CALL LIGHT WITHIN PT'S REACH. NO SIGNS AND SYMPTOMS OF DISTRESS. TELE READING AT SINUS RHYTHM 98. ALL NEEDS WERE ATTENDED. INFORMED PATIENT THAT HE IS STILL NPO. WILL ENDORSE TO DAY SHIFT NURSE.
[2017-02-17 07:33] LABS: BASOPHILS % (AUTO) 0.5 % (0.0-2.0); EOSINOPHILS # (AUTO) 0.2 /CMM (0.0-0.7); EOSINOPHILS % (AUTO) 3.2 % (0.0-6.0); HEMATOCRIT 28 % (39-51); HEMOGLOBIN 9.5 g/dL (13.5-17.5); LYMPHOCYTES # (AUTO) 1.5 /CMM (0.8-4.8); LYMPHOCYTES % (AUTO) 30.8 % (20.0-44.0); MEAN CORPUSCULAR HEMOGLOBIN 31 PG (26.0-33.0); MEAN CORPUSCULAR HGB CONC 34 g/dl (31.0-36.0); MEAN CORPUSCULAR VOLUME 92 fL (80-96); MONOCYTES # (AUTO) 0.5 /CMM (0.1-1.30); MONOCYTES % (AUTO) 9.1 % (2.0-12.0); NEUTROPHILS # (AUTO) 2.8 /CMM (1.8-8.9); NEUTROPHILS % (AUTO) 56.4 % (43.0-81.0); PLATELET COUNT (AUTO) 269 /CMM (150-450); RDW COEFFICIENT OF VARIATION 19.5 (11.5-15.0); RED BLOOD CELL COUNT(AUTO) 3.04 MIL/uL (4.5-6.0)
[2017-02-17 07:44] LABS: CALCIUM, SERUM 7.2 mg/dL (8.5-10.1); CREATININE 0.6 mg/dL (0.6-1.3); MAGNESIUM 1.8 mg/dL (1.8-2.4); PHOSPHORUS 1.5 mg/dL (2.5-4.9); POTASSIUM 3.8 mmol/L (3.5-5.1)
--- NOTE | 2017-02-17 08:00 | NUR ---
SUPERVISOR PAINTING PT IN BED AO X 3 NO DISTRESS NOTED VS STABLE IV ACCESS PATENT PT ROOM AIR, COMPLAINING OF HUNGER GAVE JUICES AND CRACKERS ORDERED LUNCH, PT DENIES OF ANY PAIN BED LOW POSITION SIDE RAILS UP X2 SEMI FOWLERS POSITION, PT DENIES OF ANY NAUSEA, CALL LIGHT W/IN REACH WILL CONTINUE TO MONITOR FALL PRECAUTIONS TAKEN.
[2017-02-17] MEDS: PANTOPRAZOLE 40 MG VIAL IV SCH (08:16)
[2017-02-17] MEDS: CYANOCOBALAMIN 500 MCG TABLET PO SCH (08:16)
[2017-02-17] MEDS ORDERED: K PHOS NEUTRAL 250 MG TABLET PO ONE (14:30)
--- NOTE | 2017-02-17 18:12 | NUR ---
multicultural manager pt bed awake alert with friend all pt needs meet no nausea or vomiting, no changes in pt condition will give report to pm nurse for continuity of care.
--- NOTE | 2017-02-17 19:30 | NUR ---
MS/RN NOTES RECEIVED PT. SITTING UP IN BED. AWAKE, ALERT AND ORIENTED X3. BREATHING EVEN AND UNLABORED ON ROOM AIR. NO SOB, RESPIRATORY DISTRESS OR COMPLAINTS OF PAIN NOTED AT THIS TIME. PT. STATES FEELING NO NAUSEA AND NO VOMITING TODAY AND AT THIS TIME. NO S/S OF BLEEDING NOTED. PT. WITH RIGHT AC 20 GAUGE IV SALINE LOCK PRESENT, PATENT AND INTACT. BED IN LOWEST POSITION, CALL LIGHT WITHIN REACH, WILL CONTINUE TO MONITOR.
[2017-02-17] MEDS: Thiamine 100 MG in IV D5W 50 ML IV SCH (19:57)
[2017-02-17 20:17] LABS: URIC ACID 4.7 mg/dL (2.6-7.2)
[2017-02-17] MEDS: Folic acid 1 MG in IV D5W 50 ML IV SCH (20:47)
--- NOTE | 2017-02-18 06:39 | NUR ---
MS/RN NOTES PT. LYING IN BED RESTING. BREATHING EVEN AND UNLABORED ON ROOM AIR. NO SOB, RESPIRATORY DISTRESS OR COMPLAINTS OF PAIN NOTED AT THIS TIME. NO COMPLAINTS OF NAUSEA OR VOMITING NOTED THROUGHOUT SHIFT AND AT THIS TIME. NO S/S OF BLEEDING NOTED THROUGHOUT SHIFT. PT. WITH RIGHT AC 20 GAUGE IV SALINE LOCK PRESENT, PATENT AND INTACT. ALL PT. NEEDS MET. BED IN LOWEST POSITION, CALL LIGHT WITHIN REACH, WILL ENDORSE TO DAYSHIFT NURSE FOR CONTINUITY OF CARE.
[2017-02-18 07:48] VITALS: BP 118/70
--- NOTE | 2017-02-18 08:00 | NUR ---
MS RN NOTES RECEIVED PATIENT IN BED RESTING NO SOB OR ACUTE DISTRESS NOTED. ALERT, ORIENTED X3 . IV ON RIGHTY AC PATENT INTACT. CALL LIGHT WITHIN REACH. BED IN LOW LOCKED POSITION. WILL CONTINUE TO MONITOR.
[2017-02-18 08:08] LABS: BASOPHILS % (AUTO) 1.1 % (0.0-2.0); EOSINOPHILS # (AUTO) 0.3 /CMM (0.0-0.7); HEMATOCRIT 29 % (39-51); HEMOGLOBIN 9.5 g/dL (13.5-17.5); LYMPHOCYTES # (AUTO) 1.9 /CMM (0.8-4.8); LYMPHOCYTES % (AUTO) 43.4 % (20.0-44.0); MEAN CORPUSCULAR HEMOGLOBIN 31 PG (26.0-33.0); MEAN CORPUSCULAR HGB CONC 33 g/dl (31.0-36.0); MEAN CORPUSCULAR VOLUME 92 fL (80-96); MONOCYTES # (AUTO) 0.3 /CMM (0.1-1.30); MONOCYTES % (AUTO) 7.8 % (2.0-12.0); NEUTROPHILS # (AUTO) 1.7 /CMM (1.8-8.9); NEUTROPHILS % (AUTO) 39.7 % (43.0-81.0); PLATELET COUNT (AUTO) 274 /CMM (150-450); RDW COEFFICIENT OF VARIATION 19.6 (11.5-15.0); RED BLOOD CELL COUNT(AUTO) 3.12 MIL/uL (4.5-6.0); WHITE BLOOD COUNT (AUTO) 4.3 K/uL (4.3-11.0)
[2017-02-18 08:20] LABS: CALCIUM, SERUM 7.8 mg/dL (8.5-10.1); CREATININE 0.7 mg/dL (0.6-1.3); PHOSPHORUS 1.8 mg/dL (2.5-4.9); POTASSIUM 3.7 mmol/L (3.5-5.1)
[2017-02-18 08:37] LABS: RETICULOCYTE COUNT 2.2 % (0.6-2.5)
[2017-02-18] MEDS: CYANOCOBALAMIN 500 MCG TABLET PO SCH (08:56)
[2017-02-18] MEDS: PANTOPRAZOLE 40 MG VIAL IV SCH (08:56)
[2017-02-18 10:00] VITALS: BP 118/70
--- NOTE | 2017-02-18 10:00 | NUR ---
MS RN NOTES PATIENT SEEN AND EVALUATED BY DR. LOPEZ. ORDERS NOTED AND CARRIED OUT.
[2017-02-18] MEDS ORDERED: CYAN500T4 PO (10:09)
--- NOTE | 2017-02-18 13:30 | NUR ---
MS RN NOTES PATIENT DISCHARGED HOME WITH TAXI. IN STABLE CONDITION. ALERT, ORIENTED X4, DISCHARGE INSTRUCTIONS PROVIDED TO PATIENT, VERBALIZED UNDERSTANDING. DISCHARGE PROTOCOL FOLLOWED. BELONGINGS LIST SINGED, ALL BELONGINGS ACCOUNTED FOR. ALL DUE MEDICATIONS GIVEN. MD AWARE OF ALL ABNORMAL LABS. KNOT TIER ARRANGED FOR HOME HEALTH TO FOLLOW UP . INSTRUCTIONS PROVIDED TO FOLLOW UP WITH OUTPATIENT EGD AND FOLLOW UP WITH PRIMARY CARE PROVIDER IN 3 DAY. PATIENT ESCORTED TO CAR.
[2017-02-18] MEDS ORDERED: K PHOS NEUTRAL 250 MG TABLET PO ONE (14:00)
== END 2017-02-18 13:35 | disposition home or self-care (01) | DRG 241 ==
LOC: ER 16:02 → TELE 19:01 → MED 02-17 11:14
PROVIDERS: ADMIT Family Medicine; ATTEND Family Medicine
DX: K29.21 Alcoholic gastritis with bleeding (principal); E44.0 Moderate protein-calorie malnutrition; Z93.0 Tracheostomy status; K76.89 Other specified diseases of liver; K27.4 Chronic or unspecified peptic ulcer, site unspecified, with hemorrhage; I10 Essential (primary) hypertension; D63.8 Anemia in other chronic diseases classified elsewhere; E16.2 Hypoglycemia, unspecified; Z91.14 Patient's other noncompliance with medication regimen; Z87.891 Personal history of nicotine dependence; F10.10 Alcohol abuse, uncomplicated; E87.6 Hypokalemia; E83.42 Hypomagnesemia; R74.0 Nonspecific elevation of levels of transaminase and lactic acid dehydrogenase [LDH]; Z68.1 Body mass index [BMI] 19.9 or less, adult
CPT/HCPCS: 36415; 71010-TC; 80048-TC; 80061-TC; 80076-TC; 80305; 82306; 82728-TC; 82746; 82962-TC; 83540-TC; 83615-TC; 83690-TC; 83735-TC; 84100-TC; 84550-TC; 85025-TC; 85045-TC; 85652-TC; 85730-TC; 86850-TC; 87081-TC; A4606; C9113; G0480; J2060; J2405; J3411; J3475; J3480; J3490; J7030; J7050; J7060; Z7610